=== PATIENT | male | born 1940 | race Caucasian/White ===

== ENCOUNTER 2016-10-25 17:04 | Outpatient (CLI) | payer MEDICARE ==
[2016-10-25] MEDS ORDERED: IOPAMIDOL-300 50 ML VIAL PO ONE (18:42)
[2016-10-25] MEDS ORDERED: IOPAMIDOL-300 100 ML VIAL IVP ONE (18:42)
== END 2016-10-25 17:05 | disposition home or self-care (01) ==
DX: N13.2 Hydronephrosis with renal and ureteral calculous obstruction (principal); K57.30 Diverticulosis of large intestine without perforation or abscess without bleeding; R91.8 Other nonspecific abnormal finding of lung field

== ENCOUNTER 2016-11-14 15:51 | Outpatient (CLI) | payer MEDICARE | END 2016-11-14 15:52 | disposition home or self-care (01) | DX: N13.30 Unspecified hydronephrosis (principal) ==

== ENCOUNTER 2017-05-10 10:02 | Outpatient (CLI) | payer MEDICARE ==
[2017-05-10 13:24] LABS: CALCIUM 9.9 mg/dL (8.5-10.3); POTASSIUM 4.8 mmol/L (3.5-5.0)
== END 2017-05-10 10:03 | disposition home or self-care (01) ==
LOC: LAB.WCP 10:02
PROVIDERS: ATTEND Physician Assistant Medical
DX: Z51.81 Encounter for therapeutic drug level monitoring (principal); Z79.899 Other long term (current) drug therapy
CPT/HCPCS: 36415; 80048

== ENCOUNTER 2017-05-30 07:10 | Outpatient (CLI) | payer MEDICARE ==
[2017-05-30] MEDS ORDERED: IOPAMIDOL-300 100 ML VIAL ONE (07:42)
[2017-05-30] MEDS ORDERED: IOPAMIDOL-300 100 ML VIAL IVP ONE ×2 (08:09)
--- NOTE | 2017-05-30 18:32 | CT Report ---
CHEST CT WITH CONTRAST: 05/30/2017 HISTORY: Followup pulmonary nodules seen on CT scan abdomen and pelvis 10/25/2016. CONTRAST: 80 mL Isovue-300. TECHNIQUE: Axial images of the chest with multiplanar reconstructions. COMPARISON: 10/25/[address] FINDINGS: Postsurgical changes lower cervical spine. Mild degenerative changes in the thoracic spin e. 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 No hilar, mediastinal, axillary, or supraclavicular adenopathy. Grossly negative thyroid gland. No pleural effusion, pneumothorax, or pulmonary nodules. Minimal hypoventilatory changes at the lung bases. COMMENT: Findings on the prior CT scan most likely related to atelectasis. 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 POSTSURGICAL CHANGES CERVICAL SPINE. OTHERWISE NE GATIVE CHEST CT. In accordance with CT protocol optimization, one or more of the following dose reduction techniques w ere utilized for this exam: automated exposure control, adjustment of mA and/or KV based on patient size, or use of iterative reconstructive technique. JOB #: [id number] EXT JOB #:[id number]
== END 2017-05-30 07:11 | disposition home or self-care (01) ==
LOC: DI 07:10
PROVIDERS: ATTEND Physician Assistant Medical
DX: R93.8 Abnormal findings on diagnostic imaging of other specified body structures (principal); Z98.890 Other specified postprocedural states
CPT/HCPCS: 71260; Q9967

== ENCOUNTER 2017-07-27 07:48 | Day surgery (SDC) | payer MEDICARE ==
[~2017-07-27 07:48] MED LIST: BRIMONIDINE 0.2% OPHTH DROPS 5 ML ONE; CYCLOPENTOLATE 1% OPHTH DROPS 2 ML ONE; KETOROLAC 0.45% OPHTH DROPS ONE; PHENYLEPHRINE 2.5% OPHTH 2 ML DROPS ONE; PROPARACAINE 0.5% OPHTH DROPS 15 ML ONE; TIMOLOL 0.5% OPHTH DROPS ONE
[2017-07-27] MEDS ORDERED: LACTATED RINGERS 500 ML IV ONE (07:53)
[2017-07-27] MEDS ORDERED: MIDAZOLAM 2 MG/2 ML VIAL IVP ONE (08:00)
[2017-07-27] MEDS ORDERED: PROPARACAINE 0.5% OPHTH DROPS 15 ML RIGHTEYE ONE (09:21)
[2017-07-27] MEDS ORDERED: EPINEPHrine 1 MG/ML AMP IVP ONE (09:28)
[2017-07-27] MEDS ORDERED: CHONDR SULF/HYALURONATE SYRINGE IO ONE (09:28)
[2017-07-27] MEDS ORDERED: BRIMONIDINE 0.2% OPHTH DROPS 5 ML OPTH ONE (09:28)
[2017-07-27] MEDS ORDERED: TIMOLOL 0.5% OPHTH DROPS OPTH ONE (09:29)
[2017-07-27] MEDS ORDERED: TRIAMCIN/MOXIFLOX/VANCO 1 ML VIAL IO ONE ×2 (09:30)
[2017-07-27] MEDS ORDERED: BSS/LIDOCAINE/EPINEPHRINE 1 ML SYRINGE IO ONE ×2 (09:30)
[2017-07-27 09:59] VITALS: BP 110/78
--- NOTE | 2017-07-27 11:07 | OPERATIVE REPORT ---
DATE OF SURGERY: 07/27/2017 00:00:00 PREOPERATIVE DIAGNOSIS: Complex visually significant cataract, right eye, complex due to use of Flomax and small pupil requiring pupil expansion and stabilization with a Malyugin ring. This was his first cataract surgery. POSTOPERATIVE DIAGNOSIS: Complex visually significant cataract, right eye, complex due to use of Flomax and small pupil requiring pupil expansion and stabilization with a Malyugin ring. This was his first cataract surgery. NAME OF PROCEDURE: Phacoemulsification posterior chamber intraocular lens implant, right eye. SURGEON: Elroy Harrell MD. ANESTHESIA: Monitored anesthesia care. COMPLICATIONS: None. OPERATIVE INDICATIONS: This is a 76-year-old man with progressive vision loss in the right eye due to 2+ nuclear sclerotic cataract. Best corrected visual acuity was 20/25 with glare to 20/70 in the right eye. Indications for surgery were overall decrease in vision, difficulty seeing words on a computer screen, difficulty reading, difficulty seeing words and game scores on TV, difficulty seeing street signs, difficulty driving in low light or at night, difficulty driving at night because of head lights from other vehicles, and difficulty with glare or bright lights in any situation. He was consented at length concerning the risks and benefits of cataract surgery, after which he expressed a desire to proceed with surgery. OPERATIVE PROCEDURE: The patient was taken into OR #3 and placed under monitored anesthesia care. A surgical time-out was conducted confirming the correct patient, correct procedure and correct surgical site. He was placed under the LenSx laser and his eye docked to the laser interface. The laser performed only the phaco wounds and arcuate keratotomy incision since capsulotomy and lens softening were prohibited by a small pupil. He was then moved to the operating microscope, given topical anesthesia, and then prepped and draped in the usual sterile fashion. The eye was entered at the 12 and 9 o' clock positions. Intracameral Shugarcaine was injected into the anterior chamber followed by Viscoat. A Malyugin ring was then inserted into the anterior chamber and engaged the pupil at 4 points to enlarge the pupil and stabilize the iris. A capsulorrhexis flap was then created using a cystotome and Utrata forceps, and the flap was then removed from the anterior chamber. The nucleus was hydrodissected and phacoemulsified. Cortex was evacuated using automated infusion and aspiration. Provisc was injected into the capsular bag and a 19.0 diopter intraocular lens was inserted into the bag. The Malyugin ring was then disengaged from the pupil margin and removed from the anterior chamber. I/A was used to evacuate the viscoelastic materials. The eye was inflated to physiologic pressure using balanced salt solution and found to be water tight. Approximately 0.7 mL of a mixture of triamcinolone, moxifloxacin, and vancomycin was injected into the superior quadrant for infection and inflammation prophylaxis. The patient was taken from the operating room in good condition and given postoperative instructions. JOB #: [id number] EXT JOB #:[id number]
== END 2017-07-27 07:49 | disposition home or self-care (01) ==
LOC: SDS 07:48
PROVIDERS: ATTEND Ophthalmology
PROC: 08RJ3JZ Replacement of Right Lens with Synthetic Substitute, Percutaneous Approach (ICD-10-PCS; principal; 2017-07-27 09:00)
DX: H25.11 Age-related nuclear cataract, right eye (principal); H57.03 Miosis; Z79.82 Long term (current) use of aspirin
CPT/HCPCS: 66982; A9270; J3490; V2632

== ENCOUNTER 2017-11-06 07:29 | Outpatient (CLI) | payer MEDICARE ==
[2017-11-06 13:55] LABS: ALBUMIN 4.2 g/dL (3.2-5.5); ALBUMIN/GLOBULIN RATIO 1.6 (1.0-2.2); ALKALINE PHOSPHATASE 50 IU/L (42-121); ALT ALANINE AMINOTRANSFERASE 16 IU/L (10-60); AST ASPARTATE AMINOTRANSFERASE 20 IU/L (10-42); BILIRUBIN,TOTAL 1.2 mg/dL (0.2-1.0); BUN - BLOOD UREA NITROGEN 16 mg/dL (6-20); CALCIUM 9.3 mg/dL (8.5-10.3); CARBON DIOXIDE - CO2 27 mmol/L (21-32); CHLORIDE 105 mmol/L (101-111); CHOL/HDL RATIO 2.2 (<5.0); CHOLESTEROL 149 mg/dL; CREATININE 0.9 mg/dL (0.6-1.2); GFR - MDRD 82 (>89); GLUCOSE 97 mg/dL (70-100); HDL CHOLESTEROL 68 mg/dL; LDL CHOLESTEROL,CALCULATED 68 mg/dL; SODIUM 138 mmol/L (135-145); TOTAL PROTEIN 6.9 g/dL (6.7-8.2); VLDL CHOLESTEROL 13 mg/dL
== END 2017-11-06 07:30 | disposition home or self-care (01) ==
LOC: LAB.WCP 07:29
PROVIDERS: ATTEND Family Medicine
DX: E78.5 Hyperlipidemia, unspecified (principal)
CPT/HCPCS: 36415; 80053; 80061; 83721

== ENCOUNTER 2018-01-18 07:44 | Day surgery (SDC) | payer MEDICARE ==
[~2018-01-18 07:44] MED LIST changes: +BSS/LIDOCAINE/EPINEPHRINE 1 ML SYRINGE ONE; -CYCLOPENTOLATE 1% OPHTH DROPS 2 ML ONE; -KETOROLAC 0.45% OPHTH DROPS ONE; -PHENYLEPHRINE 2.5% OPHTH 2 ML DROPS ONE; -PROPARACAINE 0.5% OPHTH DROPS 15 ML ONE
[2018-01-18] MEDS ORDERED: PHENYLEPHRINE 2.5% OPHTH 2 ML DROPS ONE (08:23)
[2018-01-18] MEDS ORDERED: KETOROLAC 0.45% OPHTH DROPS ONE (08:23)
[2018-01-18] MEDS ORDERED: CYCLOPENTOLATE 1% OPHTH DROPS 2 ML ONE (08:24)
[2018-01-18] MEDS ORDERED: PROPARACAINE 0.5% OPHTH DROPS 15 ML ONE (08:24)
[2018-01-18] MEDS ORDERED: LACTATED RINGERS 500 ML IV ONE (08:33)
[2018-01-18] MEDS ORDERED: KETOROLAC 0.45% OPHTH DROPS LEFTEYE ONE (08:45)
[2018-01-18] MEDS ORDERED: PROPARACAINE 0.5% OPHTH DROPS 15 ML LEFTEYE ONE ×2 (08:45→10:18)
[2018-01-18] MEDS ORDERED: PHENYLEPHRINE 2.5% OPHTH 2 ML DROPS LEFTEYE ONE (08:45)
[2018-01-18] MEDS ORDERED: CYCLOPENTOLATE 1% OPHTH DROPS 2 ML LEFTEYE ONE (08:45)
[2018-01-18] MEDS ORDERED: MIDAZOLAM 2 MG/2 ML VIAL IVP ONE (10:00)
[2018-01-18] MEDS ORDERED: BRIMONIDINE 0.2% OPHTH DROPS 5 ML OPTH ONE (10:14)
[2018-01-18] MEDS ORDERED: EPINEPHrine 1 MG/ML AMP IR ONE (10:15)
[2018-01-18] MEDS ORDERED: TIMOLOL 0.5% OPHTH DROPS OPTH ONE (10:15)
[2018-01-18] MEDS ORDERED: CHONDR SULF/HYALURONATE SYRINGE IO ONE (10:15)
[2018-01-18] MEDS ORDERED: BSS/LIDOCAINE/EPINEPHRINE 1 ML SYRINGE IO ONE (10:15)
[2018-01-18] MEDS ORDERED: TRIAMCIN/MOXIFLOX/VANCO 1 ML VIAL IO ONE (10:16)
[2018-01-18 10:32] VITALS: BP 106/69
--- NOTE | 2018-01-18 11:13 | OPERATIVE REPORT ---
DATE OF SERVICE: 01/18/2018 Physician: Elroy Harrell MD PREOPERATIVE DIAGNOSIS: Complex visually significant cataract, left eye, complex due to small pupil requiring pupil expansion with a Malyugin ring. Cataract surgery was performed similarly on the right eye on 28 July 2017. POSTOPERATIVE DIAGNOSIS: Complex visually significant cataract, left eye, complex due to small pupil requiring pupil expansion with a Malyugin ring. Cataract surgery was performed similarly on the right eye on 28 July 2017. PROCEDURE PERFORMED: Phacoemulsification with posterior chamber intraocular lens implant, left eye. SURGEON: Elroy Harrell MD ANESTHESIA: Monitored anesthesia care. COMPLICATIONS: None. OPERATIVE INDICATIONS: This is a 77-year-old man with progressive vision loss in the left eye due to 2+ nuclear sclerotic cataract. Best corrected visual acuity was 20/25 with glare to 20/70 in the left eye. Indications for surgery were overall decrease in vision, difficulty seeing words on the computer screen, difficulty reading, difficulty seeing closed captions or game scores on TV, difficulty seeing street signs, difficulty driving in low light or at night, difficulty driving at night because of headlights from other vehicles, difficulty with glare or bright lights in any situation, difficulty tracking a golf ball and decreased acuity with firearms. He was consented at length concerning risks and benefits of cataract surgery, after which he expressed desire to proceed with surgery. OPERATIVE PROCEDURE: The patient was taken into OR #3 and placed under monitored anesthesia care. A surgical time-out was conducted confirming correct patient, correct procedure and correct surgical site. He was placed under the LenSx laser and his eye docked to the laser interface. The laser performed only the phaco wounds and arcuate keratotomy incision since capsulotomy and lens softening were prohibited by a small pupil. He was then moved to the operating microscope, given topical anesthesia and prepped and draped in the usual sterile fashion. Eye was entered at the 6 and 3 o'clock positions. Intracameral Shugarcaine was injected into the anterior chamber, followed by Viscoat. A Malyugin ring was inserted into the anterior chamber and engaged the pupil 4 points to enlarge the pupil and stabilize iris. A capsulorrhexis flap was created using a cystotome and Utrata forceps. The flap was then removed from the anterior chamber. The nucleus was hydrodissected and phacoemulsified. The cortex was evacuated using automated infusion and aspiration. Provisc was injected in the capsular bag and a 19.5 diopter intraocular lens inserted in the bag. Approximately 0.8 mL of a mixture of triamcinolone, moxifloxacin and vancomycin was injected subconjunctivally in the superior quadrant for infection and inflammation prophylaxis. The Malyugin ring was then disengaged from the pupil margin and removed from the anterior chamber. I and A was used to evacuate the viscoelastic material. The eye was inflated to physiologic pressure using balanced salt solution and found to be watertight. The patient was taken from the operating room in good condition and given postop instructions. TD: 01/18/2018 10:55
== END 2018-01-18 07:45 | disposition home or self-care (01) ==
LOC: SDS 07:44
PROVIDERS: ATTEND Ophthalmology
PROC: 08RK3JZ Replacement of Left Lens with Synthetic Substitute, Percutaneous Approach (ICD-10-PCS; principal; 2018-01-18 09:00)
DX: H25.12 Age-related nuclear cataract, left eye (principal); H21.89 Other specified disorders of iris and ciliary body
CPT/HCPCS: 66982; A9270; J3490; V2632

== ENCOUNTER 2018-02-06 15:00 | Outpatient (CLI) | payer MEDICARE | END 2018-02-06 15:01 | disposition home or self-care (01) | LOC: LAB.WCP 15:00 | PROVIDERS: ATTEND Family Medicine | DX: Z79.891 Long term (current) use of opiate analgesic (principal) | CPT/HCPCS: 81599 ==

== ENCOUNTER 2018-07-15 20:50 | Emergency (ER) | payer MEDICARE ==
--- NOTE | 2018-07-15 21:07 | ED Physician Documentation ---
PD HPI MALE - Stated complaint Stated Complaint: CANNOT VOID - Chief complaint Chief Complaint: Abd Pain - History obtained from History obtained from: Patient - History of Present Illness Timing - onset: Enter time (07:30), How many days ago (2) Timing - details: Gradual onset Pain level now: 10 Associated symptoms: Unable to urinate Recently seen: Surgery - Additional information Additional information: patient had right TKR 2 days ago and had had difficulty urinating since then. able to void very small amounts but tonight cannot urinate despite urge to do so. had similar problem in the past after surgery. Review of Systems Constitutional: reports: Reviewed and negative GI: denies: Abdominal Pain (urge to urinate and suprapubic fullness and discomfort, but no abdominal pain per se) : reports: Unable to Void PD PAST MEDICAL HISTORY - Past Medical History Cardiovascular: High cholesterol Respiratory: None Endocrine/Autoimmune: None GI: None : Benign prostate hypertrophy HEENT: Chronic vision loss Psych: None Musculoskeletal: None Derm: None - Past Surgical History Past Surgical History: Yes General: Colonoscopy, Other Ortho: Hip replacement, Spine surgery HEENT: Cataracts - Present Medications Home Medications: Ambulatory Orders Medication Instructions Recorded Confirmed Oxycodone HCl/Acetaminophen 1 - 2 each PO Q6H PRN #15 tablet 06/09/14 01/18/18 [Percocet 5-325 mg Tablet] Tamsulosin [Flomax] 0.4 mg PO DAILY 06/09/14 01/18/18 Aspirin [Joana] 325 mg PO ONCE 07/15/18 07/15/18 Atorvastatin [Lipitor] 10 mg PO DAILY 07/15/18 07/15/18 - Allergies Allergies/Adverse Reactions: Allergies Allergy/AdvReac Type Severity Reaction Status Date / Time No Known Drug Allergies Allergy Verified 07/15/18 21:01 - Social History Does the pt smoke?: No Smoking Status: Never smoker Does the pt drink ETOH?: Yes Does the pt have substance abuse?: No - Immunizations Immunizations are current?: Yes - POLST Patient has POLST: No PD ED PE NORMAL - Vitals Vital signs reviewed: Yes - General General: Alert and oriented X 3, No acute distress, Well developed/nourished - Abdomen Abdomen: Soft, Non tender, Non distended - Extremities Extremities: Other (right knee: swelling with small amount of blood on dressing, appearance c/w recent surgery without evidence of infection or complication) Results - Vitals Vitals: Oxygen O2 Source Room air PD MEDICAL DECISION MAKING - ED course Complexity details: re-evaluated patient, considered differential, d/w patient ED course: turner catheter placed with large UO, clear yellow urine. resolution of symptoms with turner placement Departure - Departure Disposition: 01 Home, Self Care Clinical Impression: Acute urinary retention Condition: Good Instructions: ED Catheter Care Turner, ED Retention Urinary Male Comments: Follow up with your urologist or primary care physician in the next 3-4 days for removal of the catheter. Discharge Date/Time: 07/15/18 22:24
[2018-07-15 22:24] VITALS: BP 153/76
== END 2018-07-15 22:24 | disposition home or self-care (01) ==
LOC: ED 20:50
DX: R33.9 Retention of urine, unspecified (principal); E78.00 Pure hypercholesterolemia, unspecified; Z96.649 Presence of unspecified artificial hip joint; Z96.651 Presence of right artificial knee joint; Z79.82 Long term (current) use of aspirin
CPT/HCPCS: 51702; 99283

== ENCOUNTER 2019-01-30 09:20 | Outpatient (CLI) | payer MEDICARE ==
[2019-01-30 09:32] LABS: BILIRUBIN,URINE NEGATIVE (NEGATIVE); GLUCOSE, URINE (UA) NEGATIVE (NEGATIVE); KETONES,URINE (UA) NEGATIVE (NEGATIVE); LEUKOCYTE ESTERASE, URINE TRACE (NEGATIVE); NITRITE,URINE NEGATIVE (NEGATIVE); OCCULT BLOOD,URINE SMALL (NEGATIVE); PH,URINE 5.5 PH (5.0-7.5); PROTEIN,URINE NEGATIVE (NEGATIVE); UROBILINOGEN,URINE 0.2 (NORMAL) E.U./dL (NORMAL)
[2019-01-30 09:35] LABS: CLARITY,URINE CLEAR (CLEAR)
[2019-01-30 09:52] LABS: RBC,URINE 0-5 /HPF (0-5); SQUAMOUS EPITHELIAL CELL,UR NONE SEEN (<= Few)
[2019-01-30 09:54] LABS: BACTERIA,URINE Rare /HPF (None Seen)
== END 2019-01-30 09:21 | disposition home or self-care (01) ==
LOC: LAB 09:20
PROVIDERS: ATTEND Urology
DX: N39.0 Urinary tract infection, site not specified (principal)
CPT/HCPCS: 81001; 87077; 87086; 87181

== ENCOUNTER 2019-02-13 09:35 | Outpatient (CLI) | payer MEDICARE ==
[2019-02-13 09:46] LABS: BASOPHILS # (AUTO) 0.1 10^3/uL (0.0-0.1); BASOPHILS % (AUTO) 1.1 %; EOSINOPHILS # (AUTO) 0.3 10^3/uL (0.0-0.7); EOSINOPHILS % (AUTO) 4.9 %; HGB - HEMOGLOBIN 14.1 g/dL (14.0-18.0); LYMPHOCYTES # (AUTO) 1.5 10^3/uL (1.5-3.5); LYMPHOCYTES % (AUTO) 22.5 %; MEAN CORPUSCULAR HEMOGLOBIN 32.5 pg (27.0-31.0); MEAN CORPUSCULAR HGB CONC 33.7 g/dL (32.0-36.0); MEAN CORPUSCULAR VOLUME 96.5 fL (80.0-94.0); MEAN PLATELET VOLUME 7.1 fL (7.4-11.4); MONOCYTES # (AUTO) 0.4 10^3/uL (0.0-1.0); MONOCYTES % (AUTO) 6.3 %; NEUTROPHILS # (AUTO) 4.3 10^3/uL (1.5-6.6); NEUTROPHILS % (AUTO) 65.2 %; PLT - PLATELET COUNT 238 10^3/uL (130-450); RED BLOOD COUNT 4.34 10^6/uL (4.70-6.10); RED CELL DISTRIBUTION WIDTH 14.2 % (12.0-15.0); WHITE BLOOD COUNT 6.5 x10^3/uL (4.8-10.8)
== END 2019-02-13 09:36 | disposition home or self-care (01) ==
LOC: LAB 09:35
PROVIDERS: ATTEND Orthopaedic Surgery
DX: M25.561 Pain in right knee (principal); T84.53XD Infection and inflammatory reaction due to internal right knee prosthesis, subsequent encounter
CPT/HCPCS: 36415; 85025; 85651; 86140

== ENCOUNTER 2019-03-20 02:40 | Outpatient (CLI) | payer MEDICARE | END 2019-03-20 02:41 | disposition critical access hospital (66) | LOC: EMS 02:40 | PROVIDERS: ATTEND Surgery | DX: R53.1 Weakness (principal) | CPT/HCPCS: A0425; A0429 ==

== ENCOUNTER 2019-03-20 02:46 | Emergency (ER) | payer MEDICARE ==
[2019-03-20] MEDS ORDERED: SODIUM CHLORIDE 0.9% 1,000 ML IV ONE (03:02)
[2019-03-20 03:03] LABS: BASOPHILS % (AUTO) 0.8 %; EOSINOPHILS # (AUTO) 0.5 10^3/uL (0.0-0.7); EOSINOPHILS % (AUTO) 9.1 %; HGB - HEMOGLOBIN 12.5 g/dL (14.0-18.0); LYMPHOCYTES # (AUTO) 1.7 10^3/uL (1.5-3.5); LYMPHOCYTES % (AUTO) 34.5 %; MEAN CORPUSCULAR HEMOGLOBIN 33.2 pg (27.0-31.0); MEAN CORPUSCULAR HGB CONC 33.7 g/dL (32.0-36.0); MEAN CORPUSCULAR VOLUME 98.4 fL (80.0-94.0); MEAN PLATELET VOLUME 9.3 fL (7.4-11.4); MONOCYTES # (AUTO) 0.5 10^3/uL (0.0-1.0); MONOCYTES % (AUTO) 10.3 %; NEUTROPHILS # (AUTO) 2.2 10^3/uL (1.5-6.6); NEUTROPHILS % (AUTO) 44.3 %; PLT - PLATELET COUNT 181 10^3/uL (130-450); RED BLOOD COUNT 3.77 10^6/uL (4.70-6.10); RED CELL DISTRIBUTION WIDTH 13.3 % (12.0-15.0)
[2019-03-20 03:15] LABS: ALBUMIN/GLOBULIN RATIO 1.5 (1.0-2.2); BILIRUBIN,TOTAL 0.6 mg/dL (0.2-1.0); CALCIUM 9.2 mg/dL (8.5-10.3); CREATININE 0.9 mg/dL (0.6-1.2); TOTAL PROTEIN 6.7 g/dL (6.7-8.2)
[2019-03-20 03:26] LABS: MAGNESIUM 1.9 mg/dL (1.7-2.8)
[2019-03-20 03:28] LABS: MUDS CUTOFF CONCENTRATIONS CUTOFF CONC BELOW:
[2019-03-20 03:30] LABS: BILIRUBIN,URINE NEGATIVE (NEGATIVE); GLUCOSE, URINE (UA) NEGATIVE (NEGATIVE); KETONES,URINE (UA) NEGATIVE (NEGATIVE); LEUKOCYTE ESTERASE, URINE TRACE (NEGATIVE); NITRITE,URINE NEGATIVE (NEGATIVE); OCCULT BLOOD,URINE NEGATIVE (NEGATIVE); PROTEIN,URINE TRACE mg/dL (NEGATIVE); UROBILINOGEN,URINE 0.2 (NORMAL) E.U./dL (NORMAL)
--- NOTE | 2019-03-20 03:43 | CT Report ---
Reason: lethargic, tired, weak abrupt tonight Procedure Date: 03/20/2019 Accession Number: [id number] / [id number] Procedure: CT - HEAD WO CPT Code: FULL RESULT: EXAM: CT HEAD EXAM DATE: 03/20/2019 03:31 AM. CLINICAL HISTORY: Lethargic, tired, weak, abrupt onset tonight. COMPARISON: HEAD W/O 08/30/2016 12:06 PM. TECHNIQUE: Multiaxial CT images were obtained from the foramen magnum to the vertex. Reformats: Sagittal and coronal. IV contrast: None. In accordance with CT protocol optimization, one or more of the following dose reduction techniques were utilized for this exam: automated exposure control, adjustment of mA and/or KV based on patient size, or use of iterative reconstructive technique. FINDINGS: Parenchyma: No intraparenchymal hemorrhage. No evidence of mass, midline shift, or CT findings of infarction. Jennings-white differentiation is distinct. Extraaxial Spaces: Normal for age. No subdural or epidural collections identified. Ventricles: Normal in size and position. Sinuses and Orbits: Imaged paranasal sinuses, orbits, and mastoids show no significant abnormality. Bones: No evidence of fracture or calvarial defect. Other: None. IMPRESSION: No acute or focal intracranial abnormality. Stable exam since 08/30/2016. RADIA
[2019-03-20 03:46] LABS: CLARITY,URINE SL. CLOUDY (CLEAR)
[2019-03-20 03:47] LABS: BACTERIA,URINE Few /HPF (None Seen); RBC,URINE 0-5 /HPF (0-5); SQUAMOUS EPITHELIAL CELL,UR RARE Squamous (<= Few)
[2019-03-20 03:48] LABS: AMPHETAMINE SCREEN,URINE NEGATIVE (NEGATIVE); BENZODIAZEPINES SCREEN, URINE NEGATIVE (NEGATIVE); CASTS, URINE 3-5 Hyaline Casts /LPF; COCAINE SCREEN URINE NEGATIVE (NEGATIVE); METHADONE SCREEN, URINE NEGATIVE (NEGATIVE); METHAMPHETAMINES SCREEN, URINE NEGATIVE (NEGATIVE); OPIATE SCREEN, URINE NEGATIVE (NEGATIVE); TRICYCLIC ANTIDEPRESSANT,URINE NEGATIVE (NEGATIVE)
[2019-03-20 03:49] LABS: OXYCODONE SCREEN, URINE POSITIVE (NEGATIVE); PROPOXYPHENE SCREEN, URINE NEGATIVE (NEGATIVE)
[2019-03-20] MEDS ORDERED: cephALEXin 250 MG CAPSULE PO STA (04:31)
[2019-03-20 04:32] VITALS: BP 158/93
--- NOTE | 2019-03-20 04:35 | ED Physician Documentation ---
PD HPI ALTERED MENTAL STATUS - Stated complaint Stated Complaint: WEAKNESS - Chief complaint Chief Complaint: Neuro - History obtained from History obtained from: Patient, Family (), EMS - History of Present Illness Timing - onset: How many hours ago ( noted the patient to be confused, tired, generally weak. No apparent cause. Was feeling okay earlier in the day.), Today Timing - duration: Hours (just the past hour or so) Timing - details: Abrupt onset Quality / character: Less responsive, Confused Associated symptoms: General weakness. No: Fever, Headache, Dyspnea, Cough, NVD, Focal weakness Contributing factors: No: Recent med change, Recent illness, Recent injury Basline status: Alert and oriented X 3, Ambulatory Treatment SECRETARY SPECIALIST: Accucheck Similar symptoms before: Has not had sx before Review of Systems Unable to obtain: AMS, Confused, Other (info from ) Constitutional: denies: Fever, Chills Nose: denies: Rhinorrhea / runny nose, Congestion Cardiac: denies: Chest pain / pressure Respiratory: denies: Dyspnea GI: denies: Abdominal Pain, Nausea, Vomiting Neurologic: reports: Generalized weakness. denies: Focal weakness, Headache, Head injury PD PAST MEDICAL HISTORY - Past Medical History Past Medical History: Yes Cardiovascular: High cholesterol Respiratory: None Endocrine/Autoimmune: None GI: None : Benign prostate hypertrophy HEENT: Chronic vision loss, Chronic hearing loss Psych: None Musculoskeletal: None Derm: None - Past Surgical History Past Surgical History: Yes General: Colonoscopy, Other Ortho: Hip replacement, Spine surgery HEENT: Cataracts - Present Medications Home Medications: Ambulatory Orders Medication Instructions Recorded Confirmed Oxycodone HCl/Acetaminophen 1 - 2 each PO Q6H PRN #15 tablet 06/09/14 01/18/18 [Percocet 5-325 mg Tablet] Tamsulosin [Flomax] 0.4 mg PO DAILY 06/09/14 01/18/18 Aspirin [Joana] 325 mg PO ONCE 07/15/18 07/15/18 Atorvastatin [Lipitor] 10 mg PO DAILY 07/15/18 07/15/18 Cephalexin [Keflex] 500 mg PO TID #15 capsule 03/20/19 - Allergies Allergies/Adverse Reactions: Allergies Allergy/AdvReac Type Severity Reaction Status Date / Time No Known Drug Allergies Allergy Verified 03/20/19 03:02 - Social History Does the pt smoke?: No Smoking Status: Never smoker Does the pt drink ETOH?: Yes Does the pt have substance abuse?: No - Immunizations Immunizations are current?: Yes - POLST Patient has POLST: No PD ED PE NORMAL - Vitals Vital signs reviewed: Yes - General General: No acute distress, Well developed/nourished. No: Alert and oriented X 3 (somnolent but rousable. No focal weakness. Follows commands but sluggish. ) - HEENT HEENT: Atraumatic, PERRL, Pharynx benign - Neck Neck: Supple, no meningeal sign, No adenopathy - Cardiac Cardiac: RRR, No murmur - Respiratory Respiratory: Clear bilaterally - Abdomen Abdomen: Soft, Non tender - Derm Derm: Normal color, Warm and dry - Extremities Extremities: No tenderness to palpate, Normal ROM s pain, No edema, No calf tenderness / cord - Neuro Neuro: assistant finance manager 2-12 intact, No motor deficit, No sensory deficit, Normal speech Eye Opening: To Voice Motor: Obeys Commands Verbal: Confused GCS Score: 13 - Psych Psych: Normal mood Results - Vitals Vitals: Vital Signs - 24 hr 03/20/19 03/20/19 03/20/19 02:47 02:53 04:13 Temperature 36.1 C L Heart Rate 51 L 57 L Heart Rate [ 58 L Sitting] Heart Rate [ 58 L Standing] Heart Rate [ 55 L Supine] Respiratory 14 14 Rate Blood Pressure 110/77 110/77 Blood Pressure 126/71 [Sitting] Blood Pressure 125/90 H [Standing] Blood Pressure 113/64 [Supine] O2 Saturation 95 95 03/20/19 04:31 Temperature Heart Rate 55 L Heart Rate [ Sitting] Heart Rate [ Standing] Heart Rate [ Supine] Respiratory 21 Rate Blood Pressure 158/93 H Blood Pressure [Sitting] Blood Pressure [Standing] Blood Pressure [Supine] O2 Saturation 99 Oxygen O2 Source Room air - Labs Labs: Microbiology 03/20/19 03:15 Urine Culture - Preliminary Urine,Clean Catch CULTURE IN PROGRESS. RESULTS TO FOLLOW. Laboratory Tests 03/20/19 03/20/19 03/20/19 02:55 02:55 02:55 WBC 5.0 RBC 3.77 L Hgb 12.5 L Hct 37.1 L MCV 98.4 H MCH 33.2 H MCHC 33.7 RDW 13.3 Plt Count 181 MPV 9.3 Neut # (Auto) 2.2 Lymph # (Auto) 1.7 Rabun # (Auto) 0.5 Eos # (Auto) 0.5 Baso # (Auto) 0.0 Absolute Nucleated RBC 0.00 Nucleated RBC % 0.0 Sodium 140 Potassium 4.1 Chloride 105 Carbon Dioxide 24 Anion Gap 11.0 BUN 23 H Creatinine 0.9 Estimated GFR (MDRD) 81 L Glucose 130 H Lactic Acid Calcium 9.2 Magnesium 1.9 Total Bilirubin 0.6 AST 25 ALT 17 Alkaline Phosphatase 57 Troponin I Total Protein 6.7 Albumin 4.0 Globulin 2.7 Albumin/Globulin Ratio 1.5 Lipase 29 Urine Color Urine Clarity Urine pH Ur Specific [place] Urine Protein Urine Glucose (UA) Urine Ketones Urine Occult Blood Urine Nitrite Urine Bilirubin Urine Urobilinogen Ur Leukocyte Esterase Urine RBC Urine WBC Ur Squamous Epith Cells Urine Bacteria Urine Casts Ur Microscopic Review Urine Culture Comments Urine Opiates Screen Ur Oxycodone Screen Urine Methadone Screen Ur Propoxyphene Screen Ur Barbiturates Screen Ur Tricyclics Screen Ur Phencyclidine Scrn Ur Amphetamine Screen U Methamphetamines Scrn U Benzodiazepines Scrn Urine Cocaine Screen U Cannabinoids Screen Ethyl Alcohol < 5.0 03/20/19 03/20/19 03/20/19 02:55 03:15 03:15 WBC RBC Hgb Hct MCV MCH MCHC RDW Plt Count MPV Neut # (Auto) Lymph # (Auto) Rabun # (Auto) Eos # (Auto) Baso # (Auto) Absolute Nucleated RBC Nucleated RBC % Sodium Potassium Chloride Carbon Dioxide Anion Gap BUN Creatinine Estimated GFR (MDRD) Glucose Lactic Acid 1.4 Calcium Magnesium Total Bilirubin AST ALT Alkaline Phosphatase Troponin I < 0.04 Total Protein Albumin Globulin Albumin/Globulin Ratio Lipase Urine Color YELLOW Urine Clarity SL. CLOUDY Urine pH 6.0 Ur Specific [place] 1.025 Urine Protein TRACE Urine Glucose (UA) NEGATIVE Urine Ketones NEGATIVE Urine Occult Blood NEGATIVE Urine Nitrite NEGATIVE Urine Bilirubin NEGATIVE Urine Urobilinogen 0.2 (NORMAL) Ur Leukocyte Esterase TRACE H Urine RBC 0-5 Urine WBC 11-25 H Ur Squamous Epith Cells RARE Squamous Urine Bacteria Few Urine Casts 3-5 Hyaline Casts Ur Microscopic Review INDICATED Urine Culture Comments INDICATED Urine Opiates Screen NEGATIVE Ur Oxycodone Screen POSITIVE H Urine Methadone Screen NEGATIVE Ur Propoxyphene Screen NEGATIVE Ur Barbiturates Screen NEGATIVE Ur Tricyclics Screen NEGATIVE Ur Phencyclidine Scrn NEGATIVE Ur Amphetamine Screen NEGATIVE U Methamphetamines Scrn NEGATIVE U Benzodiazepines Scrn NEGATIVE Urine Cocaine Screen NEGATIVE U Cannabinoids Screen POSITIVE H Ethyl Alcohol - Rads (name of study) head CT Radiology: Prelim report reviewed (no acute process), See rad report PD MEDICAL DECISION MAKING - ED course Complexity details: re-evaluated patient (he is improving slowly. called ER and then came to ER and says she saw empty CBD cookie wrappers in the trash can in patient room. These had been stored in back of cupboard. Patients is able to tell us that he was wanting snack and had seen the cookies and had not realized they were marijuana ones. This seems to explain his symptoms. ), considered differential (Seems more toxic or metabolic, and not focal. Can get labs. Get CT to ensure not ICH or such. ), d/w patient Departure - Departure Disposition: 01 Home, Self Care Clinical Impression: Altered mental status Qualifiers: Altered mental status type: stupor Qualified Code(s): R40.1 - Stupor Condition: Stable Record reviewed to determine appropriate education?: Yes Follow-Up: Genaro Wilcox MD [Primary Care Provider] - Prescriptions: Cephalexin [Keflex] 500 mg PO TID #15 capsule Comments: Your head scan and blood tests are normal. The urine test does show presence of the cannabis. Also pain medications. A combination of the 2 can increase the sedation from either of them. There is suggestion of a mild bladder infection on your urine test. We can treat with some antibiotics for 5 or 6 days for that. No signs of more significant cause for your symptoms. Presume it is from the cannabis. Avoid that over the next several days or week and use only small amounts in the future if you so desire. Discharge Date/Time: 03/20/19 04:47
== END 2019-03-20 04:47 | disposition home or self-care (01) ==
LOC: EDUNIT# → ED 02:46
DX: R40.1 Stupor (principal); R53.1 Weakness
CPT/HCPCS: 36415; 70450; 80053; 81001; 83605; 83690; 83735; 84484; 85025; 87077; 87086; 87181; 93005; 96360; 99284; A9270; 80306; 80320; 81003

== ENCOUNTER 2021-04-12 08:08 | Outpatient (CLI) | payer MEDICARE ==
[2021-04-12 08:26] LABS: BASOPHILS # (AUTO) 0.1 10^3/uL (0.0-0.1); BASOPHILS % (AUTO) 0.9 %; EOSINOPHILS # (AUTO) 0.4 10^3/uL (0.0-0.7); EOSINOPHILS % (AUTO) 7.9 %; HCT - HEMATOCRIT 41.1 % (42.0-52.0); HGB - HEMOGLOBIN 14.4 g/dL (14.0-18.0); LYMPHOCYTES # (AUTO) 1.5 10^3/uL (1.5-3.5); LYMPHOCYTES % (AUTO) 27.7 %; MEAN CORPUSCULAR HEMOGLOBIN 34.1 pg (27.0-31.0); MEAN CORPUSCULAR VOLUME 97.4 fL (80.0-94.0); MEAN PLATELET VOLUME 9.1 fL (7.4-11.4); MONOCYTES # (AUTO) 0.4 10^3/uL (0.0-1.0); MONOCYTES % (AUTO) 7.7 %; NEUTROPHILS % (AUTO) 55.4 %; PLT - PLATELET COUNT 196 10^3/uL (130-450); RED BLOOD COUNT 4.22 10^6/uL (4.70-6.10); RED CELL DISTRIBUTION WIDTH 12.9 % (12.0-15.0); WHITE BLOOD COUNT 5.3 x10^3/uL (4.8-10.8)
[2021-04-12 08:57] LABS: ALBUMIN 4.5 g/dL (3.2-5.5); ALBUMIN/GLOBULIN RATIO 1.8 (1.0-2.2); ALKALINE PHOSPHATASE 61 IU/L (42-121); ALT ALANINE AMINOTRANSFERASE 22 IU/L (10-60); AST ASPARTATE AMINOTRANSFERASE 25 IU/L (10-42); BILIRUBIN,TOTAL 1.5 mg/dL (0.2-1.0); BUN - BLOOD UREA NITROGEN 19 mg/dL (6-20); CALCIUM 9.6 mg/dL (8.5-10.3); CARBON DIOXIDE - CO2 25 mmol/L (21-32); CHLORIDE 101 mmol/L (101-111); CHOL/HDL RATIO 2.8 (<5.0); CHOLESTEROL 172 mg/dL; CREATININE 0.9 mg/dL (0.6-1.2); GFR - MDRD 81 (>89); GLUCOSE 123 mg/dL (70-100); HDL CHOLESTEROL 62 mg/dL; LDL CHOLESTEROL,CALCULATED 99 mg/dL; LDL/HDL RATIO 1.6 (<3.6); POTASSIUM 4.2 mmol/L (3.5-5.0); SODIUM 135 mmol/L (135-145); TRIGLYCERIDES 55 mg/dL; VLDL CHOLESTEROL 11 mg/dL
[2021-04-12 09:09] LABS: THYROID STIMULATING HORMONE 1.62 uIU/mL (0.34-5.60)
== END 2021-04-12 08:09 | disposition home or self-care (01) ==
LOC: LAB 08:08
PROVIDERS: ATTEND Family Medicine
DX: G60.9 Hereditary and idiopathic neuropathy, unspecified (principal); G89.29 Other chronic pain; R33.9 Retention of urine, unspecified; N40.1 Benign prostatic hyperplasia with lower urinary tract symptoms; G47.9 Sleep disorder, unspecified; M16.11 Unilateral primary osteoarthritis, right hip; N13.8 Other obstructive and reflux uropathy; E78.5 Hyperlipidemia, unspecified
CPT/HCPCS: 36415; 80053; 80061; 83721; 84443; 85025

== ENCOUNTER 2022-11-28 09:08 | Outpatient (CLI) | payer MEDICARE ==
[2022-11-28 09:53] LABS: THYROID STIMULATING HORMONE 1.86 uIU/mL (0.34-5.60)
[2022-11-28 10:40] LABS: FOLATE > 49.60 ng/mL (5.90 - >24.8)
[2022-12-01 14:09] LABS: A/G RATIO 1.4 (0.7-1.7); ALBUMIN 3.8 g/dL (2.9-4.4); ALPHA-1-GLOBULIN 0.3 g/dL (0.0-0.4); ALPHA-2-GLOBULIN 0.6 g/dL (0.4-1.0); GAMMA GLOBULIN 0.9 g/dL (0.4-1.8); GLOBULIN, TOTAL 2.8 g/dL (2.2-3.9); PROTEIN TOTAL 6.6 g/dL (6.0-8.5)
== END 2022-11-28 09:09 | disposition home or self-care (01) ==
LOC: LAB 09:08
PROVIDERS: ATTEND Psychiatry & Neurology Neurology
DX: R26.89 Other abnormalities of gait and mobility (principal); G62.9 Polyneuropathy, unspecified; E55.9 Vitamin D deficiency, unspecified
CPT/HCPCS: 36415; 81599; 82306; 82607; 82652; 82746; 82784; 84155; 84165; 84443; 86334

== ENCOUNTER 2022-11-29 08:46 | Outpatient (CLI) | payer MEDICARE | END 2022-11-29 08:47 | disposition home or self-care (01) | LOC: LAB 08:46 | PROVIDERS: ATTEND Psychiatry & Neurology Neurology | DX: G62.9 Polyneuropathy, unspecified (principal) | CPT/HCPCS: 81599; 84156; 84166 ==

== ENCOUNTER 2023-02-04 08:09 | Outpatient (CLI) | payer MEDICARE ==
[2023-02-04 08:24] LABS: BASOPHILS % (AUTO) 0.7 %; EOSINOPHILS # (AUTO) 0.3 10^3/uL (0.0-0.7); EOSINOPHILS % (AUTO) 4.6 %; HCT - HEMATOCRIT 41.8 % (42.0-52.0); HGB - HEMOGLOBIN 14.2 g/dL (14.0-18.0); LYMPHOCYTES # (AUTO) 1.4 10^3/uL (1.5-3.5); LYMPHOCYTES % (AUTO) 23.3 %; MEAN CORPUSCULAR VOLUME 97.2 fL (80.0-94.0); MONOCYTES # (AUTO) 0.4 10^3/uL (0.0-1.0); MONOCYTES % (AUTO) 6.6 %; NEUTROPHILS # (AUTO) 3.8 10^3/uL (1.5-6.6); NEUTROPHILS % (AUTO) 64.5 %; PLT - PLATELET COUNT 237 10^3/uL (130-450); WHITE BLOOD COUNT 5.9 x10^3/uL (4.8-10.8)
[2023-02-04 08:42] LABS: ALBUMIN 4.2 g/dL (3.2-5.5); ALBUMIN/GLOBULIN RATIO 1.4 (1.0-2.2); ALKALINE PHOSPHATASE 71 IU/L (42-121); ALT ALANINE AMINOTRANSFERASE 25 IU/L (10-60); AST ASPARTATE AMINOTRANSFERASE 23 IU/L (10-42); BILIRUBIN,TOTAL 0.9 mg/dL (0.2-1.0); BUN - BLOOD UREA NITROGEN 18 mg/dL (6-20); CALCIUM 9.4 mg/dL (8.5-10.3); CARBON DIOXIDE - CO2 28 mmol/L (21-32); CHLORIDE 103 mmol/L (101-111); CHOL/HDL RATIO 3.1 (<5.0); CHOLESTEROL 165 mg/dL; CREATININE 0.9 mg/dL (0.6-1.2); GFR - MDRD 80 (>89); GLUCOSE 113 mg/dL (70-100); HDL CHOLESTEROL 54 mg/dL; LDL CHOLESTEROL,CALCULATED 98 mg/dL; LDL/HDL RATIO 1.8 (<3.6); POTASSIUM 4.4 mmol/L (3.5-5.0); SODIUM 139 mmol/L (135-145); TOTAL PROTEIN 7.1 g/dL (6.7-8.2); TRIGLYCERIDES 67 mg/dL; VLDL CHOLESTEROL 13 mg/dL
== END 2023-02-04 08:10 | disposition home or self-care (01) ==
LOC: LAB 08:09
PROVIDERS: ATTEND Family Medicine
DX: E78.5 Hyperlipidemia, unspecified (principal); I49.9 Cardiac arrhythmia, unspecified
CPT/HCPCS: 36415; 80053; 80061; 83721; 85025

== ENCOUNTER 2024-03-19 07:50 | Outpatient (CLI) | payer MEDICARE ==
[2024-03-19 08:08] LABS: BASOPHILS # (AUTO) 0.1 10^3/uL (0.0-0.1); BASOPHILS % (AUTO) 1.1 %; EOSINOPHILS # (AUTO) 0.5 10^3/uL (0.0-0.7); EOSINOPHILS % (AUTO) 8.8 %; HCT - HEMATOCRIT 40.2 % (42.0-52.0); HGB - HEMOGLOBIN 14.1 g/dL (14.0-18.0); LYMPHOCYTES # (AUTO) 1.8 10^3/uL (1.5-3.5); LYMPHOCYTES % (AUTO) 32.5 %; MEAN CORPUSCULAR HEMOGLOBIN 34.7 pg (27.0-31.0); MEAN CORPUSCULAR HGB CONC 35.1 g/dL (32.0-36.0); MEAN PLATELET VOLUME 9.2 fL (7.4-11.4); MONOCYTES # (AUTO) 0.4 10^3/uL (0.0-1.0); MONOCYTES % (AUTO) 8.1 %; NEUTROPHILS # (AUTO) 2.7 10^3/uL (1.5-6.6); NEUTROPHILS % (AUTO) 49.1 %; PLT - PLATELET COUNT 191 10^3/uL (130-450); RED BLOOD COUNT 4.06 10^6/uL (4.70-6.10); RED CELL DISTRIBUTION WIDTH 13.1 % (12.0-15.0); WHITE BLOOD COUNT 5.5 x10^3/uL (4.8-10.8)
[2024-03-19 08:36] LABS: ALBUMIN 4.3 g/dL (3.2-5.5); ALBUMIN/GLOBULIN RATIO 1.7 (1.0-2.2); ALKALINE PHOSPHATASE 64 IU/L (42-121); ALT ALANINE AMINOTRANSFERASE 12 IU/L (10-60); AST ASPARTATE AMINOTRANSFERASE 16 IU/L (10-42); BUN - BLOOD UREA NITROGEN 23 mg/dL (6-20); CARBON DIOXIDE - CO2 28 mmol/L (21-32); CHLORIDE 105 mmol/L (101-111); CHOL/HDL RATIO 2.4 (<5.0); CHOLESTEROL 142 mg/dL; CREATININE 1.1 mg/dL (0.6-1.3); GFR - MDRD 64 (>89); GLUCOSE 111 mg/dL (74-104); HDL CHOLESTEROL 59 mg/dL; LDL CHOLESTEROL,CALCULATED 71 mg/dL; LDL/HDL RATIO 1.2 (<3.6); POTASSIUM 4.2 mmol/L (3.5-4.5); SODIUM 139 mmol/L (135-145); TOTAL PROTEIN 6.9 g/dL (6.4-8.9); TRIGLYCERIDES 62 mg/dL; VLDL CHOLESTEROL 12 mg/dL
[2024-03-19 08:47] LABS: THYROID STIMULATING HORMONE 1.76 uIU/mL (0.34-5.60)
== END 2024-03-19 07:51 | disposition home or self-care (01) ==
LOC: LAB 07:50
PROVIDERS: ATTEND Family Medicine
DX: R20.3 Hyperesthesia (principal); I49.9 Cardiac arrhythmia, unspecified; G60.9 Hereditary and idiopathic neuropathy, unspecified; Q65.6 Congenital unstable hip; M54.16 Radiculopathy, lumbar region; N40.1 Benign prostatic hyperplasia with lower urinary tract symptoms; N13.8 Other obstructive and reflux uropathy; Z12.5 Encounter for screening for malignant neoplasm of prostate; M16.11 Unilateral primary osteoarthritis, right hip
CPT/HCPCS: 36415; 80053; 80061; 84443; 85025; G0103; 83721; 84153

== ENCOUNTER 2024-04-29 08:18 | Outpatient (CLI) | payer MEDICARE ==
--- NOTE | 2024-04-29 16:34 | MRI Report ---
PROCEDURE: Lumbar Spine WO INDICATIONS: LUMBAR RADICULOPATHY TECHNIQUE: Noncontrast sagittal T1 spin echo and T2 fast echo, sagittal STIR, axial T1 and T2 fast spin echo thr ough the lumbar spine. In cases with scoliosis, additional coronal T2 fast spin echo may be performe d. COMPARISON: None. FINDINGS: Image quality: Excellent. Surgical change: Posterior surgical fusion at L3-L5. Alignment and Curvature: Grade 1 anterolisthesis of L2 on L3. Bone Marrow: Marrow is of normal overall signal. No acute vertebral body compression fractures. Spinal Cord: Conus medullaris terminates at the L1 level. Visualized cord demonstrates normal signa l and size. Paraspinous Soft Tissues: No paravertebral masses. T12-L1: Moderate disc height loss. L1-L2: Moderate disc height loss. Broad-based disc bulge. Right facet effusion. L2-L3: Moderate disc height loss. Broad-based disc bulge. Severe spinal canal narrowing. L3-L5 disc levels are obscured by metallic artifact. No significant spinal canal narrowing is definit ively visualized. IMPRESSION: Surgical fusion at L3-L5. 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 Reviewed by: Fernando Gaytan MD on 04/29/2024 4:33 PM PDT Approved by: Fernando Gaytan MD on 04/29/2024 4:33 PM PDT Station ID: [id number]
== END 2024-04-29 08:19 | disposition home or self-care (01) ==
LOC: DI 08:18
PROVIDERS: ATTEND Orthopaedic Surgery Orthopaedic Surgery of the Spine
DX: M51.16 Intervertebral disc disorders with radiculopathy, lumbar region (principal); M48.062 Spinal stenosis, lumbar region with neurogenic claudication

== ENCOUNTER 2025-01-07 10:09 | Inpatient (IN) ==
--- OUTSIDE RECORDS SUMMARY | 2025-01-07 10:19 | EXTERNAL MEDICAL SUMMARY RPT | Continuity of Care Document ---
Author Organization [facility] Address [address] [place] [id number] Phone Problems date description facility 2024-10-19 09:45 Acute cystitis with hematuria [email or web address] 2024-10-20 05:55 Acute cystitis with hematuria [email or web address] 2024-10-21 09:10 Acute cystitis with hematuria [email or web address] 2024-10-22 09:36 Acute cystitis with hematuria [email or web address] 2024-10-22 09:36 Other retention of urine [facility] 2024-10-22 09:41 Other retention of urine [facility] 2024-11-07 11:42 Acute cystitis with hematuria [email or web address] 2024-11-07 11:42 Other retention of urine [facility] 2024-11-13 08:31 Leakage of indwellin g urethral catheter, initial encounter [facility] 2024-11-19 09:30 Other retention of urine [facility] 2024-11-21 06:06 Acute cystitis with hematuria [email or web address] 2024-11-21 06:06 Other retention of urine [facility] 2024-11-21 06:06 Leakage of indwellin g urethral catheter, initial encounter [facility] 2024-11-27 09:39 Fusion of spine, lumbar region [facility] 2024-11-27 09:39 Postlaminectomy syndrome, not e lsewhere classified [facility] 2024-11-27 09:39 Inflammatory disease of prostat e, unspecified [facility] 2024-11-27 09:39 Other retention of urine [facility] 2024-11-27 09:39 Other mechanical com plication of indwelling urethral catheter, initial encounter [facility] 2024-11-27 09:39 Leakage of other ner vous system device, implant or graft, subsequent encounter [facility] 2024-11-27 09:39 Other [facility] 07:48 Postlaminectomy syndrome, not e lsewhere classified [facility] 2024-11-29 07:48 Unspecified complica tion of genitourinary prosthetic device, implant and graft, initial encounter [facility] 2024-11-29 07:48 Leakage of other ner vous system device, implant or graft, subsequent encounter [facility] 2024-11-30 00:02 Postlaminectomy syndrome, not e lsewhere classified [facility] 2024-11-30 00:02 Unspecified complica tion of genitourinary prosthetic device, implant and graft, initial encounter [facility] 2024-11-30 00:02 Leakage of other ner vous system device, implant or graft, subsequent encounter [facility] 2024-12-02 10:15 Postlaminectomy syndrome, not e lsewhere classified [facility] 2025-01-06 22:37 Cystitis, unspecified without h ematuria [facility] 2025-01-06 22:37 Urinary tract infection, site n ot specified [facility] 2025-01-06 22:52 Cystitis, unspecified without h ematuria [facility] 2025-01-06 22:52 Urinary tract infection, site n ot specified [facility] Results/Labs test date facility value unit notes Result panel 1 WBC,URINE 2024-10-19 08:40 [facility] >25 /hpf URINE CATHETERIZED LEUKOCYTE ESTERASE, URINE 2024-10-19 08:40 [facility] (missing) Unable to report due to color interference. NITRITE,URINE 2024-10-19 08:40 [facility] (missing) Unable to report due to color interference. OCCULT BLOOD,URINE 2024-10-19 08:40 [facility] (missing) Unable to report due to color interference. SPECIFIC GRAVITY,URINE 2024-10-19 08:40 [facility] (missing) Unable to report due to color interference. UROBILINOGEN,URI NE 2024-10-19 08:[facility] Unable to report due to color interference. GLUCOSE, URINE (UA) 2024-10-19 08:40 [facility] mg/dl Unable to report due to color interference. KETONES,URINE (UA) 2024-10-19 08:40 [facility] mg/dl Unable to report due to color interference. PROTEIN,URINE 2024-10-19 08:40 [facility] mg/dl Unable to report due to color interference. PH,URINE 2024-10-19 08:40 [facility] ph Unable to report due to color interference. RBC,URINE 2024-10-19 08:40 [facility] 11-25 /h[facility] (missing) BILIRUBIN,URINE 2024-10-19 08:40 [facility] COLOR INTERFERENCE (missing) Unable to report due to color interference. Bilirubin can be influenced by color interference. Please correlate positive results with clinical presentation UR CULTURE IF IND 2024-10-19 08:40 [facility] INDICATED (missing) (missing) URINE MICROSCOPIC INDICATED? 2024-10-19 08:40 [facility] INDICATED (missing) (missing) CUL, URINE 2024-10-19 08:40 [facility] NGNo growth (missing) (missing) SQUAMOUS EPITHELIAL CELL,UR 2024-10-19 08:40 [facility] NONE SEEN (missing) (missing) COLOR,URINE 2024-10-19 08:40 [facility] ORANGE (missing) URINE CATHETERIZED BACTERIA,URINE 2024-10-19 08:40 [facility] Rare /hpf (missing) CLARITY,URINE 2024-10-19 08:40 [facility] SL. CLOUDY (missing) (missing) Result panel 2 NUCLEATED RED BLOOD CELLS AUTO 2024-11-29 07:58 [facility] 0.0 /100wbc (missing) NRBC ABSOLUTE COUNT (AUTO) 2024-11-29 07:58 [facility] 0.00 x10 3/ul (missing) BASOPHILS # (AUTO) 2024-11-29 07:58 [facility] 0.1 10 3/ul (missing) MONOCYTES # (AUTO) 2024-11-29 07:58 [facility] 0.4 10 3/ul (missing) EOSINOPHILS # (AUTO) 2024-11-29 07:58 [facility]6 10 3/ul (missing) BILIRUBIN,TOTAL 2024-11-29 07:58 [facility] 0.9 mg /dl As of March 2023 testing method has changed, this may include reference ranges. CREATININE 2024-11-29 07:58 [facility] 1.0 mg/dl As of March 2023 testing method has changed, this may include reference ranges. LYMPHOCYTES # (AUTO) 2024-11-29 07:58 [facility] 1.8 10 3/ul (missing) ALT ALANINE AMINOTRANSFERASE 2024-11-29 07:58 [facility] 10 iu/l As of March 2023 testing method has changed, this may include reference ranges. MEAN CORPUSCULAR VOLUME 2024-11-29 07:58 [facility] 100. 5 fl (missing) CHLORIDE 2024-11-29 07:58 [facility] 104 mmol/l As of March 2023 testing method has changed, this may include reference ranges. GLUCOSE 2024-11-29 07:58 [facility] 113 mg/dl As of March 2023 testing method has changed, this may include reference ranges. BUN - BLOOD UREA NITROGEN 2024-11-29 07:58 [facility] 12 mg/dl As of Mar testing method has changed, this may include reference ranges. RED CELL DISTRIBUTION WIDTH 2024-11-29 07:58 [facility] 13.1 % (missing) HGB - HEMOGLOBIN 2024-11-29 07:58 [facility] 13.2 g /dl (missing) SODIUM 2024-11-29 07:58 [facility] 139 mmol/l As of March 2023 testing method has changed, this may include reference ranges. AST ASPARTATE AMINOTRANSFERASE 2024-11-29 07:58 [facility] 17 iu/l As of March 2023 testing method has changed, this may include reference ranges. GLOBULIN 2024-11-29 07:58 [facility] 2.0 g/dl (missing) ALBUMIN/GLOBULIN RATIO 2024-11-29 07:58 [facility] 2.2 (missing) (missing) NEUTROPHILS # (AUTO) 2024-11-29 07:58 [facility] 2.8 10 3/ul (missing) PLT - PLATELET COUNT 2024-11-29 07:58 [facility] 225 10 3/ul (missing) CARBON DIOXIDE - CO2 2024-11-29 07:58 [facility] 29 mmol/l As of March 2023 testing method has changed, this may include reference ranges. RED BLOOD COUNT 2024-11-29 07:58 [facility] 3.89 10 6/ul (missing) MEAN CORPUSCULAR HGB CONC 2024-11-29 07:58 [facility] 33.8 g/dl (missing) MEAN CORPUSCULAR HEMOGLOBIN 2024-11-29 07:58 [facility] 33.9 pg (missing) HCT - HEMATOCRIT 2024-11-29 07:58 [facility] 39.1 % (missing) POTASSIUM 2024-11-29 07:58 [facility] 4.2 mmol/l As of March 2023 testing method has changed, this may include reference ranges. ALBUMIN 2024-11-29 07:58 [facility] 4.3 g/dl As of March 2023 testing method has changed, this may include reference ranges. WHITE BLOOD COUNT 2024-11-29 07:58 [facility] 5.7 x10 3/ul (missing) ANION GAP 2024-11-29 07:58 [facility] 6.0 (missing ) (missing) TOTAL PROTEIN 2024-11-29 07:58 [facility] 6.3 g/dl As of March 2023 testing method has changed, this may include reference ranges. ALKALINE PHOSPHATASE 2024-11-29 07:58 [facility] 66 iu/l As of March 2023 testing method has changed, this may include reference ranges. GFR - MDRD 2024-11-29 07:58 [facility] 71 (erick moody) Social History date description facility
--- NOTE | 2025-01-07 10:31 | ED Physician Documentation ---
History of Present Illness Stated complaint Stated Complaint: BLOOD CULTURE + Chief complaint Chief Complaint: General History obtained from History obtained from: Patient History of Present Illness Pain level max: 0 Pain level now: 0 Additonal information Additional information: Patient is an 84-year-old male who was seen in the emergency department last night for fever and UTI. His blood cultures are growing E. coli today. 3 out of 4 bottles. He states he has not any fevers this morning and states that he is feeling well. No cough or congestion. No pain. Nothing makes it better or worse. Review of Systems Constitutional Reports: Fever and Chills Ears, nose, mouth, and throat Denies: Neck pain Cardiovascular Denies: chest pain or shortness of breath with exertion Respiratory Denies: Shortness of breath or Cough Musculoskeletal Denies: Back pain or Neck pain Integumentary/Breast Denies: Rash Meds/Allgy Home Medications Ambulatory Orders Medication Instructions Recorded Confirmed tamsulosin 0.4 mg capsule 0.4 mg PO BID 07/31/24 01/07/25 atorvastatin 10 mg tablet 10 mg PO DAILY #90 tabs 08/26/24 01/07/25 gabapentin 100 mg capsule 300 mg (3 x 100 mg) PO TID #270 11/23/24 01/07/25 caps oxycodone-acetaminophen 5 mg-325 1 tab PO BID PRN pain #56 tabs 12/19/24 01/07/25 mg tablet (Endocet) latanoprost 0.005 % eye drops 1 drp ophthalmic (eye) DAILY 01/07/25 01/07/25 timolol maleate 0.5 % eye drops 1 drp ophthalmic (eye) BID 01/07/25 01/07/25 Allergies Allergies Allergy/AdvReac Type Severity Reaction Status Date / Time No Known Drug Allergies Allergy Verified 01/07/25 10:18 PFSH Active Problems All Active Problems (Updated 01/07/25 @ 10:32 by Filemon Walker MD) UTI (urinary tract infection) (Acute) Bacteremia due to Escherichia coli (Acute) Chills (Acute) Cystitis (Acute) UTI (urinary tract infection) (Acute) Prostatitis (Acute) Leakage of other nervous system device, implant or graft, subsequent encounter (Acute) Pain in left hip (Acute) Preoperative clearance (Acute) Dislocation, hip, anterior (Acute) Hematoma following procedure (Acute) Impingement syndrome of right shoulder (Acute 12/03/15) Inguinal pain of both sides (Acute 10/10/07) GERD (gastroesophageal reflux disease) (Acute 07/12/13) Degenerative joint disease of right knee (Acute 08/22/11) Degenerative joint disease of left knee (Acute 06/13/08) Degenerative joint disease of cervical spine (Acute 06/01/16) Benign prostatic hyperplasia with urinary obstruction (Acute 12/29/09) Arthritis of right hip (Acute 06/16/15) Hip pain, bilateral (Acute 06/05/12) Ulnar nerve compression (Acute 09/01/22) Supraspinatus tendinitis (Acute 02/18/09) Sleep disorder (Acute 10/10/07) Retrograde ejaculation (Acute 11/13/23) Prostate cancer screening (Acute 11/13/23) Neuropathy, idiopathic (Acute 03/31/22) Multiple pulmonary nodules (Acute 11/09/16) Lumbar radiculopathy (Acute 07/18/13) Irregular cardiac rhythm (Acute 06/07/23) Insomnia due to medical condition classified elsewhere (Acute 07/13/20) Hyperesthesia (Acute 06/07/23) Elevated blood pressure reading without diagnosis of hypertension (Acute 0 11/13/23) Dyslipidemia (Acute 08/26/09) Balance problem (Acute 05/10/22) Arrhythmia (Acute 08/05/14) Anxiety (Acute 07/12/13) 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 (Acute) Subluxable hip (Acute) Medical History Medical History (Updated 01/07/25 @ 10:32 by Filemon Walker MD) Post laminectomy syndrome Hallucinations (07/13/20) Hydronephrosis, left (11/09/16) 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) History of PAT (paroxysmal atrial tachycardia) (11/13/23) COVID-19 virus infection (01/14/23) Bursitis of left shoulder (10/16/08) Urinary retention (02/25/16) Urinary calculus (08/26/09) Cephalgia (03/01/07) Actinic keratosis (11/08/17) Surgical History Surgical History (Updated 01/07/25 @ 14:47 by Alfred Red) History of bilateral hip replacements History of knee replacement S/P hardware removal Fusion of lumbar spine History of right hip replacement (04/13/06) Family History Family History Other Family history unknown Social History Social History Smoking Status: Never smoker If you are a former smoker, when did you quit? (Date/Year): never Second hand tobacco smoke exposure: No Do you dip or chew tobacco?: No Do you vape?: No Patient requests smoking cessation consult: No Initiate information on smoking cessation: No Living arrangement: At home Marital Status: Living Condition: With spouse/s.o. Support Person: Yes Relationship: Living Situation Details: Jessie Physical Activity: Walking and Gardening Level: Assisted Home Mobility Equipment: Cane Do you feel safe in your home environment?: Yes Suffered physical, verbal, emotional, or financial abuse?: No History of Abuse: No ETOH Use: Beer Frequency: Occasional Substance Use: denies use and cannabis (any form) Are you sexually active?: No Occupation: Telephone repair Retired: Yes Known occupational exposures/hazards (Current/Previous): None known Service: Yes Dates of Service: [id number] Are you following a diet prescribed by a doctor: No Are you following a special diet: No POLST Patient has POLST: No Exam Exam Vital Signs: Vital Signs x48h Temp Pulse Resp BP Pulse Ox 01/07/25 11:56 70 18 127/70 96 01/07/25 10:17 36.4 C L 74 16 155/81 H 97 Constitutional normal general appearance and no apparent distress HENMT oropharynx normal moist mucous membranes Eyes PERRL Neck/C-Spine visual inspection normal Respiratory breath sounds equal bilaterally, normal respiratory effort and clear to auscultation bilaterally Cardiovascular normal heart rate noted and regular rhythm noted Gastrointestinal abdomen normal to inspection, abdomen soft to palpation, nontender to palpation and nondistended Genitourinary no CVA tenderness Extremities no edema Neurology speech normal Psychiatry mental status grossly normal and oriented x3 Skin skin color normal Results Vitals Vitals: Vital Signs - 24 hr 01/06/25 21:03 01/06/25 22:51 01/07/25 10:17 Temperature 36.4 C L Temperature Source Oral Pulse Rate 74 Respiratory Rate 16 Blood Pressure 155/81 H O2 Saturation 97 O2 Source Room air Room air Pain Intensity 0 0 01/07/25 10:18 01/07/25 11:56 Temperature Temperature Source Pulse Rate 70 Respiratory Rate 18 Blood Pressure 127/70 O2 Saturation 96 O2 Source Room air Pain Intensity 0 0 Oxygen O2 Source Room air Labs Labs: Laboratory Tests 01/07/25 10:43 WBC 12.7 H RBC 4.08 L Hgb 13.6 L Hct 40.5 L MCV 99.3 H MCH 33.3 H MCHC 33.6 RDW 13.7 Plt Count 174 MPV 9.5 Neut # (Auto) 11.2 H Lymph # (Auto) 0.7 L [place] # (Auto) 0.6 Eos # (Auto) 0.1 Baso # (Auto) 0.1 Absolute Nucleated RBC 0.00 Nucleated RBC % 0.0 Sodium 137 Potassium 4.3 Chloride 104 Carbon Dioxide 27 Anion Gap 6.0 BUN 22 H Creatinine 1.0 Estimated GFR (MDRD) 71 L Glucose 104 Lactic Acid 1.2 Calcium 10.0 Total Bilirubin 1.2 H AST 16 ALT 9 L Alkaline Phosphatase 71 Total Protein 6.7 Albumin 4.4 Globulin 2.3 Albumin/Globulin Ratio 1.9 PD Medical Decision Making ED course Complexity details: reviewed results, re-evaluated patient, considered differential, d/w patient and d/w business intelligence consultant ED course: Patient received Rocephin at 2114 last night, 1 g IV his white blood cell count is elevated today. 3 out of 4 blood culture bottles are positive for E. coli. Will admit to the hospitalist for E. coli bacteremia secondary to UTI. Discussed the case with the hospitalist, Dr. Delacruz, who accepts. Given a dose of Rocephin, 1 g IV in the emergency department. White blood cell count elevated today. Blood cultures were drawn. This document was made in part using voice recognition software. While efforts are made to proofread this document, sound alike and grammatical errors may occur. Discharge Plan Discharge Patient Disposition: 66 [facility] DC/Xfer Condition: Stable Clinical Impression: Bacteremia due to Escherichia coli UTI (urinary tract infection) Qualifiers: Urinary tract infection type: site unspecified Hematuria presence: without hematuria Qualified Code(s): N39.0 - Urinary tract infection, site not specified Interventions: ED Admission Assessment Last Done: 01/07/25 12:19
[2025-01-07 10:50] LABS: BASOPHILS # (AUTO) 0.1 10^3/uL (0.0-0.1); BASOPHILS % (AUTO) 0.4 %; EOSINOPHILS # (AUTO) 0.1 10^3/uL (0.0-0.7); EOSINOPHILS % (AUTO) 0.7 %; HCT - HEMATOCRIT 40.5 % (42.0-52.0); HGB - HEMOGLOBIN 13.6 g/dL (14.0-18.0); LYMPHOCYTES # (AUTO) 0.7 10^3/uL (1.5-3.5); LYMPHOCYTES % (AUTO) 5.5 %; MEAN CORPUSCULAR HEMOGLOBIN 33.3 pg (27.0-31.0); MEAN CORPUSCULAR HGB CONC 33.6 g/dL (32.0-36.0); MEAN CORPUSCULAR VOLUME 99.3 fL (80.0-94.0); MEAN PLATELET VOLUME 9.5 fL (7.4-11.4); MONOCYTES # (AUTO) 0.6 10^3/uL (0.0-1.0); MONOCYTES % (AUTO) 4.8 %; NEUTROPHILS # (AUTO) 11.2 10^3/uL (1.5-6.6); NEUTROPHILS % (AUTO) 88.2 %; PLT - PLATELET COUNT 174 10^3/uL (130-450); RED BLOOD COUNT 4.08 10^6/uL (4.70-6.10); RED CELL DISTRIBUTION WIDTH 13.7 % (12.0-15.0); WHITE BLOOD COUNT 12.7 x10^3/uL (4.8-10.8)
[2025-01-07 11:04] LABS: ALBUMIN 4.4 g/dL (3.2-5.5); ALBUMIN/GLOBULIN RATIO 1.9 (1.0-2.2); BILIRUBIN,TOTAL 1.2 mg/dL (0.2-1.0); POTASSIUM 4.3 mmol/L (3.5-4.5); TOTAL PROTEIN 6.7 g/dL (6.4-8.9)
[2025-01-07] MEDS: cefTRIAXone 1 GM VIAL IVP STA (11:53)
--- OUTSIDE RECORDS SUMMARY | 2025-01-07 12:00 | EXTERNAL MEDICAL SUMMARY RPT | Continuity of Care Document ---
Author Organization [facility] Address [address] [place] [id number] Phone Problems date description facility 2024-10-19 09:45 Acute cystitis with hematuria [facility] 2024-10-20 05:55 Acute cystitis with hematuria [facility] 2024-10-21 09:10 Acute cystitis with hematuria [facility] 2024-10-22 09:36 Acute cystitis with hematuria [facility] 2024-10-22 09:36 Other retention of urine [facility] 2024-10-22 09:41 Other retention of urine [facility] 2024-11-07 11:42 Acute cystitis with hematuria [facility] 2024-11-07 11:42 Other retention of urine [facility] 2024-11-13 08:31 Leakage of indwellin g urethral catheter, initial encounter [facility] 2024-11-19 09:30 Other retention of urine [facility] 2024-11-21 06:06 Acute cystitis with hematuria [facility] 2024-11-21 06:06 Other retention of urine [facility] 2024-11-21 06:06 Leakage of indwellin g urethral catheter, initial encounter [facility] 2024-11-27 09:39 Fusion of spine, lumbar region [facility] 2024-11-27 09:39 Postlaminectomy syndrome, not e lsewhere classified [facility] 2024-11-27 09:39 Inflammatory disease of prostat e, unspecified [facility] 2024-11-27 09:39 Other retention of urine [facility] 2024-11-27 09:39 Other mechanical com plication of indwelling urethral catheter, initial encounter [facility] 2024-11-27 09:39 Leakage of other ner vous system device, implant or graft, subsequent encounter [facility] 2024-11-27 09:39 Other specified postprocedural states [facility] 2024-11-29 07:48 Postlaminectomy syndrome, not e lsewhere classified [facility] 2024-11-29 07:48 Unspecified complica tion of genitourinary prosthetic device, implant and graft, initial encounter [facility] 2024-11-29 07:48 Leakage of other ner vous system device, implant or graft, subsequent encounter [facility] 2024-11-30 00:02 Postlaminectomy syndrome, not e lsewhere classified [facility] 2024-11-30 00:02 Unspecified complica tion of genitourinary prosthetic device, implant and graft, initial encounter [facility] 2024-11-30 00:02 Leakage of other ner vous system device, implant or graft, subsequent encounter [facility] 2024-12-02 10:15 Postlaminectomy syndrome, not e lsewhere classified [facility] 2025-01-06 22:37 Cystitis, unspecified without h ematuria [facility] 2025-01-06 22:37 Urinary tract infection, site n ot specified [facility] 2025-01-06 22:52 Cystitis, unspecified without h ematuria [facility] 2025-01-06 22:52 Urinary tract infection, site n ot specified [facility] 2025-01-07 10:18 Cystitis, unspecified without h ematuria [facility] 2025-01-07 10:18 Urinary tract infection, site n ot specified [facility] Results/Labs test date facility value unit notes Result panel 1 WBC,URINE 2024-10-19 08:40 [facility] >25 /hpf URINE CATHETERIZED LEUKOCYTE ESTERASE, URINE 2024-10-19 08:40 [facility] (missing) Unable to report due to color interference. NITRITE,URINE 2024-10-19 08:40 [facility] (missing) Unable to report due to color interference. OCCULT BLOOD,URINE 2024-10-19 08:40 [facility] (missing) Unable to report due to color interference. SPECIFIC GRAVITY,URINE 2024-10-19 08:40 [facility] (missing) Unable to report due to color interference. UROBILINOGEN,URI NE 2024-10-19 08:40 [facility] e.u./dl Unable to report due to color interference. GLUCOSE, URINE (UA) 2024-10-19 08:40 [facility] mg/dl Unable to report due to color interference. KETONES,URINE (UA) 2024-10-19 08:40 [facility] mg/dl Unable to report due to color interference. PROTEIN,URINE 2024-10-19 08:40 [facility] mg/dl Unable to report due to color interference. PH,URINE 2024-10-19 08:40 [facility] ph Unable to report due to color interference. RBC,URINE 2024-10-19 08:40 [facility] 11-25 /hpf (missing) BILIRUBIN,URINE 2024-10-19 08:40 [facility] COLOR INTERFERENCE (missing) Unable to report due to color interference. Bilirubin can be influenced by color interference. Please correlate positive results with clinical presentation UR CULTURE IF IND 2024-10-19 08:40 [facility] INDICATED (missing) (missing) URINE MICROSCOPIC INDICATED? 2024-10-19 08:40 [facility] INDICATED (missing) (missing) CUL, URINE 2024-10-19 08:40 [facility] NGNo growth (missing) (missing) SQUAMOUS EPITHELIAL CELL,UR 2024-10-19 08:40 [facility] NONE SEEN (missing) (missing) COLOR,URINE 2024-10-19 08:40 [facility] ORANGE (missing) URINE CATHETERIZED BACTERIA,URINE 2024-10-19 08:40 [facility] Rare /hpf (missing) CLARITY,URINE 2024-10-19 08:40 [facility] SL. CLOUDY (missing) (missing) Result panel 2 NUCLEATED RED BLOOD CELLS AUTO 2024-11-29 07:58 [facility] 0.0 /100wbc (missing) NRBC ABSOLUTE COUNT (AUTO) 2024-11-29 07:58 [facility] 0.00 x10 3/ul (missing) BASOPHILS # (AUTO) 2024-11-29 07:58 [facility] 0.1 10 3/ul (missing) MONOCYTES # (AUTO) 2024-11-29 07[facility] 3/ul (missing) EOSINOPHILS # (AUTO) 2024-11-29 07:58 [facility] 0.6 10 3/ul (missing) BILIRUBIN,TOTAL 2024-11-29 07[facility] 0.9 mg /dl As of March 2023 testing method has changed, this may include reference ranges. CREATININE 2024-11-29 07:58 [facility] 1.0 mg/dl As of March 2023 testing method has changed, this may include reference ranges. LYMPHOCYTES # (AUTO) 2024-11-29 07:58 [facility] 1.8 10 3/ul (missing) ALT ALANINE AMINOTRANSFERASE 2024-11-29 07:58 [facility] 10 iu/l As of March 2023 testing method has changed, this may include reference ranges. MEAN CORPUSCULAR VOLUME 2024-11-29 07:58 [facility] 100. 5 fl (missing) CHLORIDE 2024-11-29 07:58 [facility] 104 mmol/l As of March 2023 testing method has changed, this may include reference ranges. GLUCOSE 2024-11-29 07:58 [facility] 113 mg/dl As of March 2023 testing method has changed, this may include reference ranges. BUN - BLOOD UREA NITROGEN 2024-11-29 07:58 [facility] 12 mg/dl As of Mar testing method has changed, this may include reference ranges. RED CELL DISTRIBUTION WIDTH 2024-11-29 07:58 [facility] 13.1 % (missing) HGB - HEMOGLOBIN 2024-11-29 07:58 [facility] 13.2 g /dl (missing) SODIUM 2024-11-29 07:58 [facility] 139 mmol/l As of March 2023 testing method has changed, this may include reference ranges. AST ASPARTATE AMINOTRANSFERASE 2024-11-29 07:58 [facility] 17 iu/l As of March 2023 testing method has changed, this may include reference ranges. GLOBULIN 2024-11-29 07:58 [facility] 2.0 g/dl (missing) ALBUMIN/GLOBULIN RATIO 2024-11-29 07:58 [facility] 2.2 (missing) (missing) NEUTROPHILS # (AUTO) 2024-11-29 07:58 [facility] 2.8 10 3/ul (missing) PLT - PLATELET COUNT 2024-11-29 07:58 [facility] 225 10 3/ul (missing) CARBON DIOXIDE - CO2 2024-11-29 07:58 [facility] 29 mmol/l As of March 2023 testing method has changed, this may include reference ranges. RED BLOOD COUNT 2024-11-29 07:58 [facility] 3.89 10 6/ul (missing) MEAN CORPUSCULAR HGB CONC 2024-11-29 07:58 [facility] 33.8 g/dl (missing) MEAN CORPUSCULAR HEMOGLOBIN 2024-11-29 07:58 [facility] 33.9 pg (missing) HCT - HEMATOCRIT 2024-11-29 07:58 [facility] 39.1 % (missing) POTASSIUM 2024-11-29 07:58 [facility] 4.2 mmol/l As of March 2023 testing method has changed, this may include reference ranges. ALBUMIN 2024-11-29 07:58 [facility] 4.3 g/dl As of March 2023 testing method has changed, this may include reference ranges. WHITE BLOOD COUNT 2024-11-29 07:58 [facility] 5.7 x10 3/ul (missing) ANION GAP 2024-11-29 07:58 [facility] 6.0 (missing ) (missing) TOTAL PROTEIN 2024-11-29 07:58 [facility] 6.3 g/dl As of March 2023 testing method has changed, this may include reference ranges. ALKALINE PHOSPHATASE 2024-11-29 07:58 [facility] 66 iu/l As of March 2023 testing method has changed, this may include reference ranges. GFR - MDRD 2024-11-29 07:58 [facility] 71 (in g) Social History date description facility
[2025-01-07] MEDS ORDERED: ONDANSETRON 4 MG/2 ML VIAL IVP PRN (12:22)
[2025-01-07] MEDS ORDERED: ACETAMINOPHEN 325 MG TABLET PO PRN ×2 (12:22→20:40)
[2025-01-07] MEDS ORDERED: ONDANSETRON ODT 4 MG TABLET TL PRN (12:22)
[2025-01-07] MEDS ORDERED: SODIUM CHLORIDE FLUSH 0.9% 10 ML SYRINGE IVP PRN (12:22)
[2025-01-07] MEDS: SODIUM CHLORIDE 0.9% 1,000 ML IV SCH (13:35)
--- NOTE | 2025-01-07 15:43 | PHARMACY PROGRESS NOTE ---
Best Possible Medication History Admit Date and Time: 01/07/25 [id number] Home Medications Medication Instructions Recorded Confirmed Type tamsulosin 0.4 mg capsule 0.4 mg PO BID 07/31/24 01/07/25 History atorvastatin 10 mg tablet 10 mg PO DAILY #90 tabs 08/26/24 01/07/25 Rx gabapentin 100 mg capsule 300 mg (3 x 100 mg) PO TID #270 11/23/24 01/07/25 Rx caps oxycodone-acetaminophen 5 mg-325 1 tab PO BID PRN pain #56 tabs 12/19/24 01/07/25 Rx mg tablet (Endocet) latanoprost 0.005 % eye drops 1 drp ophthalmic (eye) DAILY 01/07/25 01/07/25 History timolol maleate 0.5 % eye drops 1 drp ophthalmic (eye) BID 01/07/25 01/07/25 History Processed by: Pharmacy (Medication Reconciliation completed by Visitor Services TechnicianLaura) Medications reviewed in ED?: No Medication History completed: Yes Patient Interview: Completed Secondary Source(s): Insurance records [facility] Statement: As the person ultimately responsible for medication therapy, providers are able to order a medication from an existing home medication list in [facility] via the "Reconcile Routine" prior to Confirmation of that medication by applications support specialist. Such practice is discouraged except when the physician, in their clinical judgment, deems that a medical need exists for a medication without regard to previous use.
--- NOTE | 2025-01-07 17:20 | HISTORY & PHYSICAL EXAMINATION ---
Chief Complaint Chief Complaint Chief Complaint: Bacteremia, Urinary Tract Infection History of Present Illness Admitted From Admitted From:: Home History Obtained From Records Reviewed: [facility] History obtained from: Patient, Patient's Exam Limitations: None History of Present Illness HPI Comment/Other: Patient is a pleasant 84 year old male with past medical history of BPH s/p TURP, chronic hip pain s/p bilateral hip replacements, and recent lumbar spine surgery in October 2024; admitted today for e. coli bacteremia. Patient presented to the emergency department from home yesterday evening due to episode of rigors that he describes as violent full-body shaking with fever, chills, nausea, and shortness of breath. The onset of the episode was sudden, and patient denies feeling unwell until this time. Patient took blood pressure at onset of this episode and reports that systolic was >200 and heart rate was abnormally elevated and irregular. Patient's brought patient into the emergency department for evaluation. This episode lasted approximately one hour. Patient is unaware of exposure to any sick contacts. In the ED, patient was febrile at 38.5C and tachycardic. Patient's blood pressure was mildly elevated which patient reports is his baseline. Urinalysis + for nitrites, leukocyte esterase, WBCs, and bacteria. Urine and blood culture sent. Patient received IV ceftriaxone in ED. Bladder scan was negative for urinary retention. WBC and lactate were within normal limits in ED and patient's fever, tachycardia and associated symptoms were resolved. Patient felt well enough to discharge home with PO antibiotics. Today, PCR blood culture resulted + for e.coli and patient was instructed to present to the emergency department again to be admitted to the hospital for IV antibiotics. He reports that overnight he did not have any recurrence of symptoms. Prior to hospital admission, patient explains that he has had recurrent urinary issues following his recent lumbar spine surgery in October 2024. Following surgery, he developed urinary retention and a turner catheter was placed. Patient presented to ED multiple times with catheter-associated complications and catheter was ultimately removed on 10/24. Patient has been voiding without difficulties since removal but feels that urinary tract infection is likely a result of complications associated with turner catheter placement. Meds/Allgy Home Medications Ambulatory Orders Medication Instructions Recorded Confirmed tamsulosin 0.4 mg capsule 0.4 mg PO BID 07/31/24 01/07/25 atorvastatin 10 mg tablet 10 mg PO DAILY #90 tabs 08/26/24 01/07/25 gabapentin 100 mg capsule 300 mg (3 x 100 mg) PO TID #270 11/23/24 01/07/25 caps oxycodone-acetaminophen 5 mg-325 1 tab PO BID PRN pain #56 tabs 12/19/24 01/07/25 mg tablet (Endocet) latanoprost 0.005 % eye drops 1 drp ophthalmic (eye) DAILY 01/07/25 01/07/25 timolol maleate 0.5 % eye drops 1 drp ophthalmic (eye) BID 01/07/25 01/07/25 Allergies Allergies Allergy/AdvReac Type Severity Reaction Status Date / Time No Known Drug Allergies Allergy Verified 01/07/25 10:18 PFSH Active Problems All Active Problems (Updated 01/07/25 @ 17:40 by Alfred Red) UTI (urinary tract infection) (Acute) Bacteremia due to Escherichia coli (Acute) Chills (Acute) Cystitis (Acute) UTI (urinary tract infection) (Acute) Prostatitis (Acute) Leakage of other nervous system device, implant or graft, subsequent encounter (Acute) Pain in left hip (Acute) Preoperative clearance (Acute) Dislocation, hip, anterior (Acute) Hematoma following procedure (Acute) Impingement syndrome of right shoulder (Acute 12/03/15) Inguinal pain of both sides (Acute 10/10/07) GERD (gastroesophageal reflux disease) (Acute 07/12/13) Degenerative joint disease of right knee (Acute 08/22/11) Degenerative joint disease of left knee (Acute 06/13/08) Degenerative joint disease of cervical spine (Acute 06/01/16) Benign prostatic hyperplasia with urinary obstruction (Acute 12/29/09) Arthritis of right hip (Acute 06/16/15) Hip pain, bilateral (Acute 06/05/12) Ulnar nerve compression (Acute 09/01/22) Supraspinatus tendinitis (Acute 02/18/09) Sleep disorder (Acute 10/10/07) Retrograde ejaculation (Acute 11/13/23) Prostate cancer screening (Acute 11/13/23) Neuropathy, idiopathic (Acute 03/31/22) Multiple pulmonary nodules (Acute 11/09/16) Lumbar radiculopathy (Acute 07/18/13) Irregular cardiac rhythm (Acute 06/07/23) Insomnia due to medical condition classified elsewhere (Acute 07/13/20) Hyperesthesia (Acute 06/07/23) Elevated blood pressure reading without diagnosis of hypertension (Acute 11/13/23) Dyslipidemia (Acute 08/26/09) Balance problem (Acute 05/10/22) Arrhythmia (Acute 08/05/14) Anxiety (Acute 07/12/13) USP (current) use of opiate analgesic (Acute) Subluxable hip (Acute) Medical History Medical History (Updated 01/07/25 @ 17:40 by Alfred Red) BPH (benign prostatic hyperplasia) Post laminectomy syndrome Hallucinations (07/13/20) Hydronephrosis, left (11/09/16) 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) History of PAT (paroxysmal atrial tachycardia) (11/13/23) COVID-19 virus infection (01/14/23) Bursitis of left shoulder (10/16/08) Urinary retention (02/25/16) Urinary calculus (08/26/09) Cephalgia (03/01/07) Actinic keratosis (11/08/17) Surgical History Surgical History (Updated 01/07/25 @ 17:40 by Alfred Red) H/O transurethral resection of prostate History of bilateral hip replacements History of knee replacement S/P hardware removal Fusion of lumbar spine History of right hip replacement (04/13/06) Family History Family History Other Family history unknown Social History Social History Smoking Status: Never smoker If you are a former smoker, when did you quit? (Date/Year): never Second hand tobacco smoke exposure: No Do you dip or chew tobacco?: No Do you vape?: No Patient requests smoking cessation consult: No Initiate information on smoking cessation: No Living arrangement: At home Marital Status: Living Condition: With spouse/s.o. Support Person: Yes Relationship: Living Situation Details: Jessie Physical Activity: Walking and Gardening Level: Assisted Home Mobility Equipment: Cane Do you feel safe in your home environment?: Yes Suffered physical, verbal, emotional, or financial abuse?: No History of Abuse: No ETOH Use: Beer Frequency: Occasional Substance Use: denies use and cannabis (any form) Are you sexually active?: No Occupation: Telephone repair Retired: Yes Known occupational exposures/hazards (Current/Previous): None known Service: Yes Dates of Service: [id number] Are you following a diet prescribed by a doctor: No Are you following a special diet: No POLST Patient has POLST: No POLST Status: Full Code Review of Systems Status of ROS: 10 or more systems reviewed and unremarkable except as noted in history and below Constitutional Reports: Fatigue, Fever, Chills and Weight loss (reports losing 5-6lbs since lumbar spine surgery in ); Denies: Diaphoresis or Night sweats Ears, nose, mouth, and throat Denies: Neck pain or Throat swelling Cardiovascular Reports: Irregular heart rate, swelling of feet/ankles and shortness of breath with exertion; Denies: chest pain Respiratory Reports: Shortness of breath; Denies: Cough Gastrointestinal Reports: Nausea and Poor appetite (ongoing since lumbar spine surgery); Denies: Abdominal pain, Abdominal distention, Vomiting or Diarrhea Genitourinary Denies: Painful urination, Urinary frequency, Urinary urgency, Nocturia, Blood in urine or Difficulty urinating Musculoskeletal Denies: Back pain, Neck pain or Extremity pain Integumentary/Breast Denies: Rash, Itching, Dryness or Redness Neurological Denies: Headache, General weakness, Focal weakness or Confusion Psychiatric Denies: Depression or Anxiety Endocrine Reports: Fatigue; Denies: Excessive urination Hematologic/Lymphatic Reports: Anemia; Denies: Easy bruising Allergic/Immunologic Denies: Hives, Throat swelling, Tongue swelling or Facial swelling Prior Level of Functionality: Patient lives at home with his . He is independent with his activities of daily living and household tasks. He uses cane for mobility assistance. Exam Exam Vital Signs: Vital Signs x48h Temp Pulse Pulse Resp BP BP Pulse Ox 01/07/25 17:05 37.4 C 69 18 127/71 97 01/07/25 12:35 37.1 C 67 18 151/76 H 99 01/07/25 11:56 70 18 127/70 96 Constitutional normal general appearance HENMT normocephalic and head/scalp atraumatic Eyes conjunctivae normal Neck/C-Spine visual inspection normal and trachea midline Chest inspection of chest normal and palpation of chest normal Respiratory breath sounds equal bilaterally, normal respiratory effort and clear to auscultation bilaterally Cardiovascular normal heart rate noted and regular rhythm noted Gastrointestinal abdomen normal to inspection, abdomen soft to palpation, nontender to palpation and normoactive bowel sounds Genitourinary bladder normal to palpation Back/Pelvis spine normal to inspection Extremities normal to inspection Neurology no movement abnormality noted and speech normal Psychiatry mental status grossly normal, oriented x3, thought process normal, cooperative and affect normal Skin skin color normal, no rash and skin turgor normal Conclusion/Plan Problem List (1) Bacteremia due to Escherichia coli: Plan: PCR blood culture + for e. coli on 01/07, likely due to UTI. UA + in ED on 01/06. Blood cultures collected on 01/06 pending. Patient is afebrile. WBCs trending upward (10.6>12.7). Plan: -IV antibiotics - ceftriaxone daily (day 1) -Repeat CBC daily -Aim 7-10 days of total antibiotic therapy which will be determined by source of UTI (cytitis vs prostatitis) (2) UTI (urinary tract infection): Plan: UA + in ED on 01/06 for for nitrites, leukocyte esterase, WBCs, and bacteria. Preliminary urine culture positive for gram negative rods. Patient denies dysuria, urgency, and frequency. Patient reports that following his lumbar spine surgery in October, he required placement of turner catheter in ED due to urinary retention. He presented to the ED multiple times for catheter associated complications. Urine culture ordered by PCP was positive for enterococcus faecalis on 11/29. PCP note on 12/03 states "Improved at the present time did do a urinalysis which indicates there may be some infection but this is a chronic problem for him" but it is unclear if urine culture was addressed. Of note, patient saw Dr. Nam with Urology on 11/19 who attributed urinary symptoms to catheter irritation perioperatively. Plan: -IV antibiotics - ceftriaxone daily (day 1) pending final urine culture result -Monitor intake and output -Check PSA to indirectly assess for prostatitis -Retroperontineal ultrasound d/t hx of hydronephrosis to rule out as possible cause of recurrent UTIs Qualifiers: Hematuria presence: without hematuria Urinary tract infection type: s ite unspecified Qualified Code(s): N39.0 - Urinary tract infection, site not specified (3) Hip pain, bilateral: Plan: Patient endorses chronic pain in bilateral hips that he rates 5/10 at worst. At home, he takes oxycodone-acetaminophen 5-325 mg (Endocet) 1 tab PO BID PRN. Plan: - Continue oxycodone-acetaminophen 5-325 mg. (4) Irregular cardiac rhythm: Plan: Patient reports episode of increased, irregular heart rate with onset of symptoms. History of cardiac arrhythmia noted in chart. On auscultation, heart rate and rhythm is regular. Plan: -Order telemetry Plan Admit Inpatient Code Status: Full Surrogate Decision Maker: Jessie Rodgers Lab Results Lab results reviewed: Yes 01/07/25 10:43 01/07/25 10:43 Core Measures Anticipated LOS I expect patient to be DC'd or transferred within 96 hours.: Yes DVT/VTE - Prophylaxis VTE/DVT Device ordered at admit?: No VTE/DVT Prophylaxis med ordered at admit?: Yes
[2025-01-07] MEDS ORDERED: oxyCODONE/ACET 5/325 Prepack 4 PO PRN (19:47)
[2025-01-07] MEDS: SODIUM CHLORIDE FLUSH 0.9% 10 ML SYRINGE IVP SCH (19:53)
[2025-01-07] MEDS ORDERED: oxyCODONE 5 MG TABLET PO PRN (20:39)
[2025-01-07] MEDS: TAMSULOSIN 0.4 MG CAPSULE PO SCH (21:40)
[2025-01-07] MEDS: GABAPENTIN 300 MG CAPSULE PO SCH (21:40)
[2025-01-07] MEDS: HYDROcod/ACETAM 5/325 MG TABLET PO PRN (21:40)
[2025-01-07] MEDS: TIMOLOL 0.5% OPHTH DROPS EACHEYE SCH (21:41)
[2025-01-08 04:21] LABS: BASOPHILS % (AUTO) 0.4 %; EOSINOPHILS # (AUTO) 0.3 10^3/uL (0.0-0.7); EOSINOPHILS % (AUTO) 3.4 %; HCT - HEMATOCRIT 34.8 % (42.0-52.0); HGB - HEMOGLOBIN 11.5 g/dL (14.0-18.0); LYMPHOCYTES # (AUTO) 1.6 10^3/uL (1.5-3.5); MEAN CORPUSCULAR HEMOGLOBIN 32.9 pg (27.0-31.0); MEAN CORPUSCULAR VOLUME 99.4 fL (80.0-94.0); MEAN PLATELET VOLUME 9.6 fL (7.4-11.4); MONOCYTES # (AUTO) 0.7 10^3/uL (0.0-1.0); MONOCYTES % (AUTO) 7.2 %; NEUTROPHILS # (AUTO) 7.2 10^3/uL (1.5-6.6); NEUTROPHILS % (AUTO) 72.3 %; PLT - PLATELET COUNT 146 10^3/uL (130-450); RED CELL DISTRIBUTION WIDTH 13.6 % (12.0-15.0); WHITE BLOOD COUNT 9.9 x10^3/uL (4.8-10.8)
[2025-01-08 04:43] LABS: CALCIUM 9.2 mg/dL (8.5-10.3); CREATININE 0.9 mg/dL (0.6-1.3)
[2025-01-08] MEDS: ENOXAPARIN 40 MG/0.4 ML SYRINGE SUBQ SCH (08:41)
[2025-01-08] MEDS: ATORVASTATIN 10 MG TABLET PO SCH (08:41)
[2025-01-08] MEDS: LATANOPROST 0.005% OPHTH DROPS EACHEYE SCH (08:45)
--- NOTE | 2025-01-08 09:04 | Ultrasound Report ---
PROCEDURE: US Renal (Retroperitoneal) INDICATIONS: hx of hydro and now w recurrent UTI TECHNIQUE: Real-time scanning was performed of the retroperitoneal organs, with image documentation. COMPARISON: Renal ultrasound of the 11/14/2016, CT abdomen and pelvis dated 11/04/2016. FINDINGS: Kidneys: Kidneys are normal in size. Right kidney measures 12 cm long; left kidney measures 11.9 cm long. Right renal cortical thickness is 1.2 cm; left renal cortical thickness is 1.0 cm. There are multiple bilateral renal stones. There is a right renal stone measuring 1.1 cm in the lower pole. The left kidney has 2 middle pole stones, one of which measuring 1.6 cm and the other of which measures 1.4 cm. There is mild bilateral pelviectasis. Bladder: Pre-void bladder volume is 78.1 mL. Post-void residual is 66.8 mL. Pre-void images demons trate no intraluminal masses or stones. On pre-void images, a right unilateral ureteral jet is noted with color Doppler interrogation. (Of note, ureteral jets may not be detectable in up to 25% of chloe es due to insufficient differences in specific gravity between ureteral and bladder urine). Miscellaneous: No free abdominal fluid. Prostate is enlarged, measuring 3.6 x 4.0 x 4.5 cm. IMPRESSION: 1. Multiple bilateral renal parenchymal stones. 2. Mild bilateral pelviectasis. 3. Moderate post void residual. 4. Prostatomegaly. Comment: If clinically suspect obstructing ureteral stone, consider CT [facility] Reviewed by: Deangelo Lim MD on 01/08/2025 9:02 AM PDT Approved by: Deangelo Lim MD on 01/08/2025 9:02 AM PDT Station ID: [id number]
[2025-01-08] MEDS: cefTRIAXone 1 GM in SODIUM CHLORIDE 0.9% MINIBAG 100 ML IV SCH (09:07)
[2025-01-08] MEDS: cefTRIAXone 1 GM VIAL IVP ONE (11:49)
--- NOTE | 2025-01-08 17:17 | PROVIDER PROGRESS NOTE ---
Subjective Prog Note Date Prog Note Date: 01/08/25 Prog Note Time: 17:15 Subjective Pt reports feeling: Improved Subjective: He feels really good. He is bored out of his mind. He denies chest pain, cough, palpitations. No fevers. No rigors. Appetite is back. From yesterday to today he feels pretty much back to baseline. Current Medications Current Medications Current Medications: Current Medications Generic Name Dose Route Start Last Admin Trade Name Freq PRN Reason Stop Dose Admin Acetaminophen 650 mg 01/07/25 12:22 Acetaminophen 325 Mg Tablet PO Q4HR PRN Pain 1 to 4, or Fever Acetaminophen 650 mg 01/07/25 20:40 Acetaminophen 325 Mg Tablet PO BID PRN Moderate Pain (Level 4-6) Hydrocodone Bitart/Acetaminophen 1 tab 01/07/25 12:22 01/07/25 21:40 Hydrocod/Acetam 5/325 Mg Tablet PO 1 tab Q4HR PRN Administration Pain 5 to 7 Atorvastatin Calcium 10 mg 01/08/25 09:00 01/08/25 08:41 Atorvastatin 10 Mg Tablet PO 10 mg DAILY ENRRIQUE Administration Ceftriaxone Sodium 2 gm 01/09/25 09:00 Ceftriaxone 2 Gm Vial IVP DAILY ENRRIQUE Enoxaparin Sodium 40 mg 01/08/25 09:00 01/08/25 08:41 Enoxaparin 40 Mg/0.4 Ml Syringe SUBQ 40 mg DAILY ENRRIQUE Administration Gabapentin 300 mg 01/07/25 22:00 01/08/25 14:28 Gabapentin 300 Mg Capsule PO 300 mg TID ENRRIQUE Administration Latanoprost 1 drops 01/08/25 09:00 01/08/25 08:45 Latanoprost 0.005% Ophth Drops EACHEYE 1 drops DAILY ENRRIQUE Administration Ondansetron HCl 4 mg 01/07/25 12:22 Ondansetron Odt 4 Mg Tablet TL Q6HR PRN Nausea / Vomiting Ondansetron HCl 4 mg 01/07/25 12:22 Ondansetron 4 Mg/2 Ml Vial IVP Q6HR PRN Nausea / Vomiting Oxycodone HCl 5 mg 01/07/25 20:39 Oxycodone 5 Mg Tablet PO BID PRN Moderate Pain (Level 4-6) Sodium Chloride 10 ml 01/07/25 12:22 Sodium Chloride Flush 0.9% 10 Ml Syringe IVP PRN PRN NEEDED PER PROVIDER ORDERS Sodium Chloride 10 ml 01/07/25 17:00 01/08/25 09:35 Sodium Chloride Flush 0.9% 10 Ml Syringe IVP 10 ml 0100,0900,1700 ENRRIQUE Administration Sterile Water 20 ml 01/09/25 09:00 Water For Injection,Sterile 10 Ml Vial MC DAILY ENRRIQUE Tamsulosin HCl 0.4 mg 01/07/25 21:00 01/08/25 08:41 Tamsulosin 0.4 Mg Capsule PO 0.4 mg BID ENRRIQUE Administration Timolol Maleate 1 drops 01/07/25 21:00 01/08/25 08:41 Timolol 0.5% Ophth Drops EACHEYE 1 drops BID ENRRIQUE Administration Objective Vital Signs/Intake & Output Reviewed Vital Signs: Yes Vital Signs: Vital Signs x48h Temp Pulse Resp BP Pulse Ox 01/08/25 15:59 36.7 C 66 17 141/76 H 97 01/08/25 12:08 37 C 61 17 136/82 H 97 Intake & Output: Intake & Output 01/05/25 01/06/25 01/07/25 01/08/25 23:59 23:59 23:59 23:59 Intake Total 1600 / 1600 1999 Output Total 350 / 350 Balance 1250 / 1250 1999 Weight (kg) 72.5 kg Objective General Appearance: positive Other (Thin, lean, tanned elderly gentleman, alert, oriented with a great sense of humor) Eyes Bilateral: positive PERRL and EOMI ENT: positive ENT inspection nml, Pharynx nml and No signs of dehydration Neck: positive Nml inspection and No JVD; negative Stiff neck Respiratory: positive Chest non-tender, No respiratory distress and Breath sounds nml; negative Wheezes, Rales or Rhonchi Cardiovascular: positive Regular rate & rhythm and No murmur Abdomen: positive Non-tender, No organomegaly, Nml bowel sounds and No distention Skin: positive Color nml (Tanned) and Dry Extremities: positive Non-tender, Full ROM, Nml appearance and No pedal edema Neurologic/Psychiatric: positive Oriented x3, CN's nml (2-12) and Motor nml Lab Results 01/08/25 04:01 01/08/25 04:01 Other Labs: Lab Results x24hrs 01/08/25 01/08/25 Range/Units 07:59 04:01 WBC 9.9 (4.8-10.8) x10^3/uL RBC 3.50 L (4.70-6.10) 10^6/uL Hgb 11.5 L (14.0-18.0) g/dL Hct 34.8 L (42.0-52.0) % MCV 99.4 H (80.0-94.0) fL MCH 32.9 H (27.0-31.0) pg MCHC 33.0 (32.0-36.0) g/dL RDW 13.6 (12.0-15.0) % Plt Count 146 (130-450) 10^3/uL MPV 9.6 (7.4-11.4) fL Neut # (Auto) 7.2 H (1.5-6.6) 10^3/uL Lymph # (Auto) 1.6 (1.5-3.5) 10^3/uL [place] # (Auto) 0.7 (0.0-1.0) 10^3/uL Eos # (Auto) 0.3 (0.0-0.7) 10^3/uL Baso # (Auto) 0.0 (0.0-0.1) 10^3/uL Absolute Nucleated RBC 0.00 x10^3/uL Nucleated RBC % 0.0 /100WBC Sodium 140 (135-145) mmol/L Potassium 4.0 (3.5-4.5) mmol/L Chloride 109 (101-111) mmol/L Carbon Dioxide 26 (21-32) mmol/L Anion Gap 5.0 L (6-13) BUN 18 (6-20) mg/dL Creatinine 0.9 (0.6-1.3) mg/dL Estimated GFR (MDRD) 80 L (>89) Glucose 84 (74-104) mg/dL Calcium 9.2 (8.5-10.3) mg/dL Free PSA 1.694 (0.16-2.81) ng/mL % Free PSA 33 (25-100) % Total PSA 5.062 H (0.000-2.000) ng/mL ABX Reporting Has patient been on IV antibiotics over the past 48 hours?: Yes Assessment/Plan Problem List (1) Bacteremia due to Escherichia coli: Impression: This gentleman was seen in the emergency room the day before admission. Diagnosed with a UTI that is growing out E. coli. However the sensitivities are still unidentifiable. His blood cultures were positive and he returned to the emergency room on the . He has been treated with E. coli bacteremia with empiric Rocephin. When the sensitivities are back, I will adjust his antibiotics if needed. His white cell count has responded. He was 12.7 on admission and is 9.9 today. He did not have lactic acidosis. His lactic acid was 1.3 on the . 1.2 on the day of admission. So I do not feel he had sepsis. He just has bacteremia. My plan is 7 days of antibiotics. Once his sensitivities are back I will try and transition to oral to complete his antibiotic therapy, then send him home.He is doing very well. (2) UTI (urinary tract infection): Impression: I was worried about the cause of his UTI. This is a gentleman who has benign prostatic hypertrophy history but has had a prostatectomy. A CT in 2017 and an ultrasound in 2017 showed hydronephrosis. He has not had any repeat imaging since then. So I repeated a retroperitoneal ultrasound last night and he has urinary retention. Multiple bilateral renal parenchymal stones. Mild bilateral pelviectasis. Prostatomegaly has returned. His prostate is 3.6 x 4.0 x 4.5 cm. So he does not have pyelonephritis. He does not have hydronephrosis. He is just a complicated cystitis. the differential diagnosis of prostatitis was also considered by me. So I obtained a free PSA which was 1.694. Free PSA was 33%. I realize that ordering a PSA is not necessarily diagnostic for prostatitis but is more an indirect indicator. At this time I do not think he has prostatitis. [place] I will let his urologist, Dr. Raul Nam, know that he is here. He is already on Flomax 0.4 mg p.o. twice daily. I will add Proscar. Because of the stones I will check a PTH tomorrow morning. Qualifiers: Hematuria presence: without hematuria Urinary tract infection type: s ite unspecified Qualified Code(s): N39.0 - Urinary tract infection, site not specified (3) Hip pain, bilateral: Impression: Was one of his complaints on admission. Being in bed and being sick made his hips hurt even more. I have him on as needed medication including oxycodone and Tylenol and his pain is controlled. No change in medications today (4) Irregular cardiac rhythm: Impression: He had an episode of bradycardia yesterday.On telemetry it was felt to be a junctional bradycardia. But no symptomatology. I reviewed his old charts and he had a [place] ambulatory monitor report from June 2023. Predominant rhythm was sinus rhythm. He had 723 episodes of atrial tachycardia with the longest being 43 beats. The average heart rate was between 128-160 with that. No bradycardia. He had an accelerated idioventricular rhythm. Telemetry strips I am seeing show sinus rhythm. PACs. But no atrial tachycardia or sinus bradycardia. Will continue to monitor
[2025-01-09 05:55] LABS: BASOPHILS % (AUTO) 0.3 %; EOSINOPHILS # (AUTO) 0.6 10^3/uL (0.0-0.7); EOSINOPHILS % (AUTO) 10.4 %; HCT - HEMATOCRIT 34.4 % (42.0-52.0); HGB - HEMOGLOBIN 11.5 g/dL (14.0-18.0); LYMPHOCYTES # (AUTO) 1.1 10^3/uL (1.5-3.5); LYMPHOCYTES % (AUTO) 19.2 %; MEAN CORPUSCULAR HEMOGLOBIN 33.1 pg (27.0-31.0); MEAN CORPUSCULAR HGB CONC 33.4 g/dL (32.0-36.0); MEAN CORPUSCULAR VOLUME 99.1 fL (80.0-94.0); MEAN PLATELET VOLUME 9.8 fL (7.4-11.4); MONOCYTES # (AUTO) 0.6 10^3/uL (0.0-1.0); MONOCYTES % (AUTO) 10.9 %; NEUTROPHILS # (AUTO) 3.4 10^3/uL (1.5-6.6); NEUTROPHILS % (AUTO) 58.5 %; PLT - PLATELET COUNT 160 10^3/uL (130-450); RED BLOOD COUNT 3.47 10^6/uL (4.70-6.10); RED CELL DISTRIBUTION WIDTH 13.3 % (12.0-15.0); WHITE BLOOD COUNT 5.8 x10^3/uL (4.8-10.8)
[2025-01-09 06:13] LABS: CALCIUM 9.2 mg/dL (8.5-10.3); CREATININE 0.8 mg/dL (0.6-1.3)
[2025-01-09 08:12] VITALS: O2SAT 99
[2025-01-09] MEDS: cefTRIAXone 2 GM VIAL IVP SCH (08:54)
--- NOTE | 2025-01-09 12:06 | Discharge Summary ---
"Discharge Summary Admit Date: 01/07/25 Discharge Date: 01/09/25 Discharging Provider: Danielle Delacruz MD Primary Care Provider: Calderon Landa MD Code Status: Attempt Resuscitation DIAGNOSES Discharge Diagnoses with Status of Each Condition: 1 bacteremia due to E. coli 2. UTI 3. BPH with urinary obstruction 4. History of TURP 5. Nephrolithiasis 6. Bilateral hip pain 7. Heart palpitations HPI History of Present Illness: Patient is a pleasant 84 year old male with past medical history of BPH s/p TURP, chronic hip pain s/p bilateral hip replacements, and recent lumbar spine surgery in October 2024; admitted today for e. coli bacteremia. Patient presented to the emergency department from home yesterday evening due to episode of rigors that he describes as violent full-body shaking with fever, chills, nausea, and shortness of breath. The onset of the episode was sudden, and patient denies feeling unwell until this time. Patient took blood pressure at onset of this episode and reports that systolic was >200 and heart rate was abnormally elevated and irregular. Patient's brought patient into the emergency department for evaluation. This episode lasted approximately one hour. Patient is unaware of exposure to any sick contacts. In the ED, patient was febrile at 38.5C and tachycardic. Patient's blood pressure was mildly elevated which patient reports is his baseline. Urinalysis + for nitrites, leukocyte esterase, WBCs, and bacteria. Urine and blood culture sent. Patient received IV ceftriaxone in ED. Bladder scan was negative for urinary retention. WBC and lactate were within normal limits in ED and patient's fever, tachycardia and associated symptoms were resolved. Patient felt well enough to discharge home with PO antibiotics. Today, PCR blood culture resulted + for e.coli and patient was instructed to present to the emergency department again to be admitted to the hospital for IV antibiotics. He reports that overnight he did not have any recurrence of symptoms. Prior to hospital admission, patient explains that he has had recurrent urinary issues following his recent lumbar spine surgery in October 2024. Following surgery, he developed urinary retention and a turner catheter was placed. Patient presented to ED multiple times with catheter-associated complications and catheter was ultimately removed on 10/24. Patient has been voiding without difficulties since removal but feels that urinary tract infection is likely a result of complications associated with turner catheter placement. CONSULTS | PROCEDURES Procedures: 1. Telemetry monitoring shows normal sinus rhythm. Occasional bradycardia. This was done for palpitations. 2. Retroperitoneal ultrasound has multiple bilateral renal parenchymal stones. Mild bilateral pelviectasis. Moderate postvoid residual. Prostatomegaly. 3. Chest x-ray has no acute cardiopulmonary process 4. Urine and blood cultures from January 06 grew out E. coli that is pansensitive. Repeat blood cultures January 07 are without any growth after 2 days HOSPITAL COURSE Hospital Course: The patient was admitted inpatient since we expected more than 2 midnights to treat gram-negative bacteremia. He was started on empiric Rocephin. White cell count was initially 12.7 on admission and was normal by discharge at 5.8. Hemoglobin was 13.6 on admission and down to 11.5 by the time of discharge. Platelets were normal. We awaited sensitivities from the January 06 blood cultures and urine cultures. Those sensitivities were available today, on the day of discharge, and his E. coli is sensitive to all usual antibiotics. He is afebrile, normal white cell count, ambulating in the room, eating. Occasionally bradycardic but asymptomatic. I feel he is stable for going home and will be sending him home on Levaquin 500 mg a day for 10 days. I did notify his urologist that he was in the hospital. I did not need a consult and notified urology strictly as a courtesy. I let Dr. Carter know that the patient was not obstructed. But he does have kidney stones. I ordered a PTH and that was normal at 50. PSA was done as an indirect measurement of possible prostatitis and total PSA was 5.062. Free PSA 1.694. He is discharged in stable condition. Temperature is 36.7. Heart rate 52. Respirations 16. O2 sat is 99% on room air. Blood pressure is 147/68. He is a lean elderly gentleman who is alert, oriented, delightful individual. He is 5 foot 11 inches tall, 72.5 kg. Neck is supple. Lungs are clear to auscultation and percussion. While he has a regular rate and rhythm there is occasional ectopy that I can hear that sometimes leads me to wonder if he has A-fib. But telemetry did not confirm that. Abdomen is soft and nontender. Last bowel movement was January 08. He is eating 100% of his food. Normal bowel sounds. No edema. Lean body mass. He is able to get out of bed on his own, walk to the bathroom on his own, without ataxia or dizziness. Greater than 30 minutes was spent correlating discharge ALLERGIES Allergies Allergy/AdvReac Type Severity Reaction Status Date / Time No Known Drug Allergies Allergy Verified 01/07/25 10:18 MEDICATIONS Ambulatory Orders Medication Instructions Recorded Confirmed tamsulosin 0.4 mg capsule 0.4 mg PO BID 07/31/24 01/07/25 atorvastatin 10 mg tablet 10 mg PO DAILY #90 tabs 08/26/24 01/07/25 gabapentin 100 mg capsule 300 mg (3 x 100 mg) PO TID #270 11/23/24 01/07/25 caps oxycodone-acetaminophen 5 mg-325 1 tab PO BID PRN pain #56 tabs 12/19/24 01/07/25 mg tablet (Endocet) latanoprost 0.005 % eye drops 1 drp ophthalmic (eye) DAILY 01/07/25 01/07/25 timolol maleate 0.5 % eye drops 1 drp ophthalmic (eye) BID 01/07/25 01/07/25 levofloxacin 500 mg tablet 500 mg PO DAILY #10 tabs 01/09/25 PHYSICAL EXAM AT DISCHARGE Vital Signs: Vital Signs x48h Temp Pulse Resp BP BP Pulse Ox 01/09/25 08:11 36.7 C 52 L 16 147/68 H 99 01/09/25 05:00 36.9 C 53 L 18 124/73 96 LABS 01/09/25 05:27 01/09/25 05:27 Discharge Plan Discharge Patient Disposition: Home, Self Care Condition: Stable Medically Cleared Date:: 01/09/25 Prescriptions: New levofloxacin 500 mg tablet 500 mg PO DAILY Qty: 10 0RF Continued atorvastatin 10 mg tablet 10 mg PO DAILY Qty: 90 3RF gabapentin 100 mg capsule 300 mg PO TID Qty: 270 3RF oxycodone-acetaminophen [Endocet] 5-325 mg tablet 1 tab PO BID PRN (Reason: pain) Qty: 56 0RF tamsulosin 0.4 mg capsule 0.4 mg PO BID Patient Comments: 1 tab QAM & 1 QPM Pat. took AM dose at home, still needs PM latanoprost 0.005 % drops 1 drp ophthalmic (eye) DAILY timolol maleate 0.5 % drops 1 drp ophthalmic (eye) BID Patient Comments: INSTILL 1 DROP INTO BOTH EYES TWICE DAILY Activity Restrictions: Activity as Tolerated Diet: Regular Health Concerns: You had come to the emergency room on January 06 because of shaking with fevers, weakness, and a history of a complicated bladder/prostate problems ever since you had your surgery for your spine. A Turner has been in and out. But since the last time the Turner was removed you been urinating well. The fever and weakness was sudden in onset. You came to the emergency room and were diagnosed with a UTI and sent home with antibiotics. However the blood cultures that were done with your ER visit were positive and you are asked to come back to the hospital because positive blood cultures need to be treated with intravenous antibiotics temporarily. I started you on intravenous antibiotics that would treat a UTI. You have done well with that and you have no fever, no elevated white cell count. The identity of the bacteria is E. coli. And it is not resistant to common antibiotics for urinary tract infections. So I am switching you to a pill. You will take that once a day for the next 10 days. While you were here we did make sure that you did not have an obstruction in your kidneys. You do have kidney stones and you have a history of kidney stones in the past. The kidney stones have not left her kidneys and are sitting in the different channels of your kidneys. But they are not down in your ureter and they are not obstructing it. I have let your urologist, Dr. Raul Nam, know about the stones and he will address that when he next sees you. Nothing necessarily needs to be done for them. Imaging of your prostate shows it to be quite large. This is in spite of you having a previous history of a TURP. I checked for inflammation of the prostate by checking a PSA. Your PSA is mildly elevated at 5 but it does not indicate that you have prostatitis or prostate cancer. Directions for discharge: 1. Please see your urologist in the next 2 weeks. 2. Complete the Levaquin tablet, once a day, for 10 days 3. See your primary care provider in follow-up to see if there is anything they can do to prevent your kidney stones. I did check a special chemistry called parathyroid hormone. Sometimes if your parathyroid hormone is very elevated it causes you to have kidney stones. That test result was pending at the time of discharge and your provider can review that with you. 4. Please make sure you drink at least 750 cc of water a day. I have sent you home with the water canister we use at the hospital because it has measurement lines on it. The measurement lines go to 1000 cc. I want you to drink at least 750 cc a day. Print Language: Kosovan Patient Instructions: Levofloxacin tablets, Probs Prostate Related Urinary Sx, Anatomy Prostate, ED UTI Cystitis Male Follow-up Care: Calderon Landa MD [Primary Care Provider] -"
[2025-01-09 12:28] VITALS: BP 130/81; TEMP 98.4
== END 2025-01-09 13:42 | disposition home or self-care (01) | DRG 690 ==
LOC: ED 10:09 → MS3 11:57
PROVIDERS: ADMIT Specialist; ATTEND Specialist
DX: B96.20 Unspecified Escherichia coli [E. coli] as the cause of diseases classified elsewhere; R00.2 Palpitations; R78.81 Bacteremia; R00.1 Bradycardia, unspecified; M25.551 Pain in right hip; G89.29 Other chronic pain; M25.552 Pain in left hip; N20.0 Calculus of kidney; N40.1 Benign prostatic hyperplasia with lower urinary tract symptoms; N39.0 Urinary tract infection, site not specified; N13.8 Other obstructive and reflux uropathy